=== PATIENT | female | born 1950 | race Caucasian/White ===

== ENCOUNTER 2016-12-01 09:15 | Inpatient (IN) | payer MEDICARE, OTHER ==
[~2016-12-01 09:15] MED LIST: Lactated Ringers 1,000 ML IV SCH; Lidocaine 1%/Sod Bicarbonate in NS 8.4% 1 ML Syringe IV PRN; Sodium Chloride 0.9% 10 ML Syringe FLUSH PRN
[2016-12-01] MEDS ORDERED: Midazolam 1 MG/ML 2 ML SDV ONE (09:56)
[2016-12-01] MEDS ORDERED: Propofol 200 MG/20 ML SDV ONE ×2 (09:56→14:57)
[2016-12-01] MEDS ORDERED: Lidocaine 1% 4 ML ONE (10:04)
[2016-12-01] MEDS ORDERED: fentaNYL 100 MCG/2 ML SDV ONE (10:06)
[2016-12-01] MEDS ORDERED: Morphine PF 10 MG/10 ML SDV ONE (10:07)
--- NOTE | 2016-12-01 12:45 | PCM.PREANE ---
[id number] - Anesthesia/Transfusion/Family Hx Anesthesia History: Prior Anesthesia Without Reaction Family History of Anesthesia Reaction: No Transfusion History: Prior Transfusion Without Reaction Intubation History: Unknown - Review of Systems General: Other (left eye slightly red due to allergies per patient ) Pulmonary: No Symptoms Cardiovascular: Dyspnea on Exertion, Edema Gastrointestinal: No symptoms Neurological: Numbness (lower extremities from diabetes ) Other: Reports: None - Physical Assessment NPO Status Date: 11/30/16 NPO Status Time: 21:30 O2 Sat by Pulse Oximetry: 95 Respiratory Rate: 16 Vital Signs: Last Vital Signs Temp 37.0 C 12/01/16 10:30 Pulse 59 L 12/01/16 10:30 Resp 16 12/01/16 10:30 BP 159/79 H 12/01/16 10:30 Pulse Ox 95 12/01/16 10:30 Height: 1.6 m Weight: 109.769 kg ASA Class: 3 Mental Status: Alert & Oriented x3 Airway Class: Mallampati = 2 Dentition: Reports: Normal Dentition Thyro-Mental Finger Breadths: 3 Mouth Opening Finger Breadths: 5 ROM/Head Extension: Full Lungs: Clear to auscultation, Normal respiratory effort Cardiovascular: Regular Rate, Regular Rhythm - Lab Values: Laboratory Last Values POC Glucose 108 mg/dL (80-115) 12/01/16 11:11 - Allergies Allergies/Adverse Reactions: Allergies Allergy/AdvReac Type Severity Reaction Status Date / Time clopidogrel bisulfate Allergy difficulty Verified 11/28/16 11:18 [From Plavix] breathing, facial swelling, throat swelling - Blood Blood Available: Yes - Anesthesia Plan Beta Cort[place]: Carvedilol Med Last Dose Date: 12/01/16 Med Last Dose Time: 07:00 - Acknowledgements Anesthesia Type Planned: Spinal Pt an Appropriate Candidate for the Planned Anesthesia: Yes Alternatives and Risks of Anesthesia Discussed w Pt/Guardian: Yes Pt/Guardian Understands and Agrees with Anesthesia Plan: Yes PreAnesthesia Questionnaire HEENT History: Reports: Allergic Rhinitis, Impaired Vision, Other (See Below) Other HEENT History: wears glasses Cardiovascular History: Reports: High Cholesterol, Hypertension, [place], Stents Other Cardiovascular History: heart stents Respiratory History: Reports: Bronchitis, Recurrent, Other (See Below) Other Respiratory History: cough Gastrointestinal History: Reports: GERD Genitourinary History: Reports: Other (See Below) Other Genitourinary History: chronic kidney disease [employer] History: Reports: None Musculoskeletal History: Reports: Arthritis, Other (See Below) Other Musculoskeletal History: R elbow pain and swelling, 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, L knee replacement Neurological History: Reports: None Psychiatric History: Reports: None Endocrine/Metabolic History: Reports: Diabetes, Type II Hematologic History: Reports: None Immunologic History: Reports: None Oncologic (Cancer) History: Reports: None Dermatologic History: Reports: None - Past Surgical History Head Surgeries/Procedures: Reports: None Female Surgical History: Reports: Section Musculoskeletal Surgical History: Reports: Knee Replacement - SUBSTANCE USE Smoking Status *Q: Never Smoker Second Hand Smoke Exposure: No Recreational Drug Use History: No - HOME MEDS Home Medications: Home Meds Aspirin [Low Dose Aspirin EC] 81 mg PO DAILY 02/16/15 [History] Carvedilol [Coreg] 12.5 mg PO BID 02/16/15 [History] Losartan/Hydrochlorothiazide [Losartan-HCTZ 100-25 MG] 100 mg PO DAILY 02/16/15 [History] Magnesium 250 mg PO DAILY 02/16/15 [History] Multivitamin [One Daily] 1 tab PO DAILY 02/16/15 [History] atorvaSTATin [Lipitor] 80 mg PO DAILY 02/16/15 [History] sitaGLIPtin Phos/Metformin HCl [Janumet 50-500 MG] 1 tab PO QPM 02/16/15 [ History] sitaGLIPtin Phos/Metformin HCl [Janumet 50-500 MG] 0.5 tab PO QAM 02/19/15 [ History] Ascorbic Acid [Vitamin C] 500 mg PO DAILY tablet 02/21/15 [Rx] Amoxicillin 500 mg PO ASDIRECTED PRN 11/28/16 [History] Cholecalciferol (Vitamin D3) [Vitamin D3] 1,000 mg PO DAILY 11/28/16 [History] - CURRENT (IN HOUSE) MEDS Current Meds: Current Medications Lactated Ringer's (Ringers, Lactated) 1,000 mls @ 125 mls/hr IV ASDIRECTED GUY Last Admin: 12/01/16 11:00 Dose: 125 mls/hr Lidocaine/Sodium Bicarbonate (Buffered Lidocaine 1% In Ns 8.4%) 0.25 ml IV ONETIME PRN PRN Reason: Prior to IV Start Last Admin: 12/01/16 10:59 Dose: 0.25 ml Sodium Chloride (Saline Flush) 10 ml FLUSH ASDIRECTED PRN PRN Reason: Keep Vein Open Discontinued Medications Bupivacaine HCl (Marcaine 0.5%) Confirm Administered Dose 30 ml .ROUTE .STK-MED ONE Stop: 12/01/16 12:11 Cefazolin Sodium (Ancef) Confirm Administered Dose 2 gm .ROUTE .STK-MED ONE Stop: 12/01/16 12:11 Morphine Sulfate 8 mg/Epinephrine HCl 0.3 mg/Cefuroxime Sodium 750 mg/Ketorolac Tromethamine 30 mg/Sodium Chloride 27.9 ml 0 mg .XX ONETIME ONE Stop: 12/01/16 12:31 Fentanyl (Sublimaze) Confirm Administered Dose 100 mcg .ROUTE .STK-MED ONE Stop: 12/01/16 10:07 Lidocaine HCl (Xylocaine-Mpf 1%) Confirm Administered Dose 4 mls @ as directed .ROUTE .STK-MED ONE Stop: 12/01/16 10:05 Iodine (Iodine 2% Mild Tincture) Confirm Administered Dose 30 ml .ROUTE .STK- MED ONE Stop: 12/01/16 12:11 Midazolam HCl (Versed 1 Mg/Ml) Confirm Administered Dose 2 mg .ROUTE .STK-MED ONE Stop: 12/01/16 09:57 Morphine Sulfate (Duramorph Pf) Confirm Administered Dose 10 mg .ROUTE .STK-MED ONE Stop: 12/01/16 10:08 Propofol (Diprivan 20 Ml) Confirm Administered Dose 600 mg .ROUTE .STK-MED ONE Stop: 12/01/16 09:57 Tranexamic Acid (Cyklokapron) Confirm Administered Dose 1,000 mg .ROUTE .STK- MED ONE Stop: 12/01/16 12:11
[2016-12-01] MEDS ORDERED: diphenhydrAMINE 50 MG/ML SDV IVPUSH PRN (12:53)
[2016-12-01] MEDS ORDERED: Ondansetron 4 MG/2 ML SDV IVPUSH PRN ×2 (12:53→15:37)
[2016-12-01] MEDS ORDERED: Bupivacaine 0.25% 30 ML SDV ONE (13:06)
[2016-12-01] MEDS ORDERED: ceFAZolin 1 GM Vial ONE (13:44)
[2016-12-01] MEDS ORDERED: Ondansetron 4 MG/2 ML SDV ONE (14:02)
[2016-12-01] MEDS: ceFAZolin 1 GM Vial ONE ×2 (14:14→14:42)
[2016-12-01] MEDS: Iodine/Sodium Iodide 2% Tincture 30 ML Bottle ONE ×2 (14:14→14:39)
[2016-12-01] MEDS: Morphine 8 MG, EPINEPHrine 0.3 MG, Cefuroxime 750 MG, Ketorolac 30 MG, Sodium Chloride ... ONE ×10 (14:15→14:46)
[2016-12-01] MEDS: Bupivacaine 0.5% 30 ML SDV ONE ×2 (14:15→14:47)
[2016-12-01] MEDS ORDERED: Phenylephrine/Normal Saline 100 MCG/ML 10 ML Syringe ONE (14:55)
[2016-12-01] MEDS ORDERED: ePHEDrine/Normal Saline 25 MG/5 ML Syringe ONE (14:59)
--- NOTE | 2016-12-01 15:34 | PCM.POSTAN ---
POST ANESTHESIA ASSESSMENT - MENTAL STATUS Mental Status: alert, oriented - VITAL SIGNS Pulse Rate: 68 SaO2: 93 Resp Rate: 15 Blood Pressure: 121/71 Temperature: 98.4 C - RESPIRATORY Respiratory Status: respiratory rate WNL, airway patent, O2 saturation stable - CARDIOVASCULAR CV Status: pulse rate WNL, blood pressure stable - GASTROINTESTINAL GI Status: no symptoms - PAIN Pain Score: 0 - POST OP HYDRATION Hydration Status: adequate & stable
[2016-12-01] MEDS ORDERED: Morphine 2 MG/ML Syringe IVPUSH PRN (15:37)
[2016-12-01] MEDS ORDERED: Naloxone 0.4 MG/ML SDV IVPUSH PRN (15:37)
[2016-12-01] MEDS ORDERED: Sennosides 8.6 MG Tab PO PRN (15:37)
[2016-12-01] MEDS ORDERED: Bisacodyl 5 MG Tab PO PRN (15:37)
[2016-12-01] MEDS ORDERED: Magnesium Hydroxide 400 MG/5 ML Susp 30 ML Cup PO PRN (15:37)
--- NOTE | 2016-12-01 16:06 | CR ---
Right knee: AP and lateral views of the right knee were obtained. Comparison: No previous right knee study. Knee prosthesis is seen. Components are aligned. Underlying bony structures are intact. Small amount of soft tissue air is noted from the surgical procedure. Impression: 1. Satisfactory appearance of recently placed right knee prosthesis. Diagnostic code #2
[2016-12-01] MEDS: metFORMIN 500 MG Tab PO SCH ×2 (17:20→21:15)
[2016-12-01] MEDS: Carvedilol 12.5 MG Tab PO SCH ×2 (17:20→21:15)
[2016-12-01] MEDS ORDERED: Non-Formulary Medication 1 Each (Sitagliptin Phos/Metformin Hcl [Janumet 50-500 Mg] 1 TAB) PO SCH (18:00)
--- NOTE | 2016-12-01 18:21 | PCM.CONSN ---
- General Info Date of Service: 12/01/16 Admission Dx/Problem (Free Text): 66 year olfd female with right knee OA, is S/P right total knee arthroplasty. The patient underwent risk stratification by cardiology. This included an stress test which is negative. She has a PCI history with stent placement in 2005. PMH: CAD/ND; HTN; COPD; CKD; Hyperlipidemia. Hospitalist service will assist with medical needs. Functional Status: Reports: pain controlled, tolerating diet, urinating - Review of Systems General: Reports: No Symptoms HEENT: Reports: no symptoms Pulmonary: Reports: no symptoms Cardiovascular: Reports: No Symptoms Gastrointestinal: Reports: No symptoms Genitourinary: Reports: no symptoms Musculoskeletal: Reports: no symptoms Skin: Reports: no symptoms Neurological: Reports: No Symptoms Psychiatric: Reports: no symptoms - Patient Data Vitals - most recent: Last Vital Signs Temp 36.8 C 12/01/16 16:15 Pulse 63 12/01/16 17:56 Resp 16 12/01/16 17:56 BP 115/90 12/01/16 17:32 Pulse Ox 95 12/01/16 17:56 Weight - most recent: 109.769 kg Lab Results last 24 hrs: Laboratory Results - last 24 hr 12/01/16 Range/Units 11:11 POC Glucose 108 (80-115) mg/dL Med Orders - Current: Current Medications Aspirin (Ecotrin) 325 mg PO BID GUY Bisacodyl (Dulcolax) 5 mg PO DAILY PRN PRN Reason: Constipation Carvedilol (Coreg) 12.5 mg PO BIDMEALS [facility] Last Admin: 12/01/16 17:20 Dose: 12.5 mg Cholecalciferol (Vitamin D3) 1,000 units PO DAILY [facility] Cyclobenzaprine HCl (Flexeril) 10 mg PO TID PRN PRN Reason: Spasms Docusate Sodium (Colace) 100 mg PO BID [facility] Hydrochlorothiazide (Hydrochlorothiazide) 25 mg PO DAILY [facility] Lactated Ringer's (Ringers, Lactated) 1,000 mls @ 125 mls/hr IV ASDIRECTED [facility] Last Admin: 12/01/16 11:00 Dose: 125 mls/hr Cefazolin Sodium/Dextrose 2 gm (/ Premix) 50 mls @ 100 mls/hr IV Q8H [facility] Stop: 12/02/16 14:29 Lidocaine/Sodium Bicarbonate (Buffered Lidocaine 1% In Ns 8.4%) 0.25 ml IV ONETIME PRN PRN Reason: Prior to IV Start Last Admin: 12/01/16 10:59 Dose: 0.25 ml Losartan Potassium (Cozaar) 100 mg PO DAILY [facility] Magnesium Hydroxide (Milk Of Magnesia) 30 ml PO BID PRN PRN Reason: Constipation Magnesium Oxide (Magnesium Oxide) 400 mg PO DAILY [facility] Metformin HCl (Glucophage) 500 mg PO QPM [facility] Last Admin: 12/01/16 17:20 Dose: 500 mg Metformin HCl (Glucophage) 250 mg PO QAM [facility] Morphine Sulfate (Morphine) 2 mg IVPUSH Q2H PRN PRN Reason: Breakthrough Pain Multivitamins (Thera) 1 each PO WITHBREAKFAST [facility] Ondansetron HCl (Zofran) 4 mg IVPUSH Q6H PRN PRN Reason: Nausea/Vomiting Oxycodone/Acetaminophen (Percocet 325-5 Mg) 1 - 2 tab PO Q4H PRN PRN Reason: Pain Rosuvastatin Calcium (Crestor) 20 mg PO DAILY [facility] Senna (Senna) 8.6 mg PO BID PRN PRN Reason: Constipation Sitagliptin Phosphate (Januvia) 50 mg PO QPM [facility] Last Admin: 12/01/16 17:21 Dose: 50 mg Sitagliptin Phosphate (Januvia) 25 mg PO QAM [facility] Sodium Chloride (Saline Flush) 10 ml FLUSH ASDIRECTED PRN PRN Reason: Keep Vein Open Discontinued Medications Bupivacaine HCl (Marcaine 0.5%) Confirm Administered Dose 30 ml .ROUTE .STK-MED ONE Stop: 12/01/16 12:11 Last Admin: 12/01/16 14:47 Dose: 30 ml Bupivacaine HCl (Marcaine 0.25%) Confirm Administered Dose 30 ml .ROUTE .STK- MED ONE Stop: 12/01/16 13:07 Cefazolin Sodium (Ancef) Confirm Administered Dose 2 gm .ROUTE .STK-MED ONE Stop: 12/01/16 12:11 Last Admin: 12/01/16 14:42 Dose: 2 gm Cefazolin Sodium (Ancef) Confirm Administered Dose 2 gm .ROUTE .STK-MED ONE Stop: 12/01/16 13:45 Morphine Sulfate 8 mg/Epinephrine HCl 0.3 mg/Cefuroxime Sodium 750 mg/Ketorolac Tromethamine 30 mg/Sodium Chloride 27.9 ml 0 mg .XX ONETIME ONE Stop: 12/01/16 12:31 Last Admin: 12/01/16 14:46 Dose: 788.3 mg Diphenhydramine HCl (Benadryl) 25 mg IVPUSH Q6H PRN PRN Reason: pruritis Stop: 12/01/16 18:00 Ephedrine Sulfate (Ephedrine In Ns) Confirm Administered Dose 25 mg .ROUTE .STK- MED ONE Stop: 12/01/16 15:00 Fentanyl (Sublimaze) Confirm Administered Dose 100 mcg .ROUTE .STK-MED ONE Stop: 12/01/16 10:07 Lidocaine HCl (Xylocaine-Mpf 1%) Confirm Administered Dose 4 mls @ as directed .ROUTE .STK-MED ONE Stop: 12/01/16 10:05 Iodine (Iodine 2% Mild Tincture) Confirm Administered Dose 30 ml .ROUTE .STK- MED ONE Stop: 12/01/16 12:11 Last Admin: 12/01/16 14:39 Dose: 18 ml Midazolam HCl (Versed 1 Mg/Ml) Confirm Administered Dose 2 mg .ROUTE .STK-MED ONE Stop: 12/01/16 09:57 Morphine Sulfate (Duramorph Pf) Confirm Administered Dose 10 mg .ROUTE .STK-MED ONE Stop: 12/01/16 10:08 Naloxone HCl (Narcan) 0.1 mg IVPUSH Q5M PRN PRN Reason: Oversedation Stop: 12/01/16 15:53 Ondansetron HCl (Zofran) 4 mg IVPUSH ONETIME PRN PRN Reason: Nausea/Vomiting Stop: 12/01/16 18:00 Ondansetron HCl (Zofran) Confirm Administered Dose 4 mg .ROUTE .STK-MED ONE Stop: 12/01/16 14:03 Phenylephrine HCl (Phenylephrine In Ns 100 Mcg/Ml) Confirm Administered Dose 1 mg .ROUTE .STK-MED ONE Stop: 12/01/16 14:56 Propofol (Diprivan 20 Ml) Confirm Administered Dose 600 mg .ROUTE .STK-MED ONE Stop: 12/01/16 09:57 Propofol (Diprivan 20 Ml) Confirm Administered Dose 200 mg .ROUTE .STK-MED ONE Stop: 12/01/16 14:58 Tranexamic Acid (Cyklokapron) Confirm Administered Dose 1,000 mg .ROUTE .[employer] ONE Stop: 12/01/16 12:11 Last Admin: 12/01/16 14:56 Dose: 1,000 mg - Exam Quality Assessment: urine catheter, DVT prophylaxis General: alert, oriented, cooperative, no acute distress HEENT: Pupils equal, Pupils reactive, EOMI Neck: supple, trachea midline, no JVD Lungs: Normal respiratory effort Cardiovascular: Regular Rate, Regular Rhythm Abdomen: bowel sounds present, soft, no tenderness, no distension (Female) Exam: Deferred Back Exam: Normal Inspection Extremities: normal pulses Skin: warm Neurological: no new focal deficit, normal speech Psy/Mental Status: alert, normal affect, normal mood Consult PN Assessment/Plan POD#: 0 Procedures: Procedures ASSAY OF FERRITIN (11/17/16) ASSAY OF PREALBUMIN (11/17/16) ASSAY THYROID STIM HORMONE (07/21/16) C-REACTIVE PROTEIN (01/10/16) CARDIOVASCULAR STRESS TEST (08/31/15) CHEST X-RAY 2VW FRONTAL&LATL (11/17/16) COMPLETE CBC W/AUTO DIFF WBC (11/17/16) COMPREHEN METABOLIC PANEL (11/17/16) GAIT TRAINING THERAPY (02/19/15) GLUCOSE BLOOD TEST (02/19/15) GLYCOSYLATED HEMOGLOBIN TEST (11/17/16) HT MUSCLE IMAGE SPECT MULT (08/31/15) LIPID PANEL (10/13/16) MEASURE BLOOD OXYGEN LEVEL (02/19/15) MICROALBUMIN SEMIQUANT (07/21/16) MR-STAPH DNA AMP PROBE (11/17/16) OFFICE/OUTPATIENT VISIT EST (11/17/16) OFFICE/OUTPATIENT VISIT EST (07/21/16) OT EVALUATION (02/19/15) PPSV23 VACC 2 YRS+ SUBQ/IM (02/19/15) PROTHROMBIN TIME (11/17/16) PT EVALUATION (02/19/15) ROUTINE VENIPUNCTURE (11/17/16) SELF CARE MNGMENT TRAINING (02/19/15) THERAPEUTIC ACTIVITIES (02/19/15) THERAPEUTIC EXERCISES (02/19/15) THROMBOPLASTIN TIME PARTIAL (11/17/16) VITAMIN D 25 HYDROXY (11/17/16) X-RAY EXAM OF ELBOW (10/17/16) X-RAY EXAM OF KNEE 1 OR 2 (02/19/15) (1) CAD (coronary artery disease) SNOMED Code(s): 21832927 Code(s): I25.10 - ATHSCL HEART DISEASE OF [place] CORONARY ARTERY W/O ANG PCTRS Current Visit: No (2) Diabetes SNOMED Code(s): 22958370 Code(s): E11.9 - TYPE 2 DIABETES MELLITUS WITHOUT COMPLICATIONS Current Visit: No (3) Hyperlipemia SNOMED Code(s): 23052526 Code(s): E78.5 - HYPERLIPIDEMIA, UNSPECIFIED Current Visit: No (4) Hypertension SNOMED Code(s): 06592977 Code(s): I10 - ESSENTIAL (PRIMARY) HYPERTENSION Current Visit: No Problem List Initiated/Reviewed/Updated: Yes Plan: Impression: POD 0, S/P Right total knee arthroplasty Right knee OA Chronic CAD/ND HTN Hyperlipidemia COPD CKD Plan: Daily labs Home meds Pain meds DVT prophylaxis GI prophylaxis SW/PT/OT
[2016-12-01] MEDS ORDERED: Metoclopramide 10 MG/2 ML SDV IVPUSH PRN (20:09)
[2016-12-01] MEDS: Docusate Sodium 100 MG Cap PO SCH (20:51)
[2016-12-01] MEDS: ceFAZolin 2 GM in Premix Bag 1 BAG IV SCH (21:02)
[2016-12-02] MEDS: Acetaminophen/oxyCODONE 325-5 MG Tab PO PRN ×3 (00:07→14:54)
[2016-12-02] MEDS ORDERED: Sodium Chloride 0.9% 1,000 ML IV SCH (02:15)
[2016-12-02] MEDS ORDERED: Furosemide 20 MG/2 ML VIAL IVPUSH ONE (06:03)
[2016-12-02] MEDS ORDERED: Sodium Chloride 0.9% 500 ML IV ONE (06:04)
[2016-12-02] MEDS ORDERED: Tamsulosin 0.4 MG Cap.ER PO ONE (06:09)
--- NOTE | 2016-12-02 06:16 | PCM.CONSN ---
- General Info Date of Service: 12/02/16 Admission Dx/Problem (Free Text): POD #[address] Abdi Pain under fair to good control; up with PT yesterday and this morning. Slept "OK" last night. No nausea. Low urine output overnight; rec'd one 250cc bolus last evening. No CP, SOB, palpitations, coughing. Hgb 10.2 this am VSS. Functional Status: Reports: pain controlled, tolerating diet, ambulating, urinating (low urine output overnight). Denies: new symptoms - Review of Systems General: Denies: Fever HEENT: Reports: no symptoms Pulmonary: Reports: no symptoms. Denies: shortness of breath, cough Cardiovascular: Reports: No Symptoms. Denies: Chest Pain, Palpitations, Dyspnea on Exertion, Edema, Lightheadedness Gastrointestinal: Reports: No symptoms Genitourinary: Reports: other (low urine output overnight; yanez to be dc'd this am) Musculoskeletal: Reports: leg pain Neurological: Reports: No Symptoms Psychiatric: Reports: no symptoms - Patient Data Vitals - most recent: Last Vital Signs Temp 97.5 F 12/02/16 03:09 Pulse 58 L 12/02/16 03:09 Resp 18 12/02/16 03:09 BP 128/83 12/02/16 03:09 Pulse Ox 94 L 12/02/16 03:09 Weight - most recent: 251 lb 9.6 oz I&O - last 24 hours: Intake & Output 12/01/16 12/01/16 12/02/16 14:59 22:59 06:59 Intake Total 470 1383 Output Total 500 250 Balance -30 1133 Lab Results last 24 hrs: Laboratory Results - last 24 hr 12/01/16 Range/Units 11:11 POC Glucose 108 (80-115) mg/dL Med Orders - Current: Current Medications Aspirin (Ecotrin) 325 mg PO BID GUY Bisacodyl (Dulcolax) 5 mg PO DAILY PRN PRN Reason: Constipation Carvedilol (Coreg) 12.5 mg PO BIDMEALS [facility] Last Admin: 12/01/16 21:15 Dose: Not Given Cholecalciferol (Vitamin D3) 1,000 units PO DAILY [facility] Cyclobenzaprine HCl (Flexeril) 10 mg PO TID PRN PRN Reason: Spasms Docusate Sodium (Colace) 100 mg PO BID [facility] Last Admin: 12/01/16 20:51 Dose: 100 mg Enoxaparin Sodium (Lovenox) 40 mg SUBCUT DAILY [facility] Famotidine (Pepcid) 20 mg PO BID [facility] Hydrochlorothiazide (Hydrochlorothiazide) 25 mg PO DAILY [facility] Cefazolin Sodium/Dextrose 2 gm (/ Premix) 50 mls @ 100 mls/hr IV Q8H GUY Stop: 12/02/16 14:29 Last Admin: 12/01/16 21:02 Dose: 100 mls/hr Sodium Chloride (Normal Saline) 1,000 mls @ 150 mls/hr IV ASDIRECTED [facility] Last Admin: 12/02/16 02:11 Dose: 150 mls/hr Sodium Chloride (Normal Saline) 500 mls @ 999 mls/hr IV .BOLUS ONE Stop: 12/02/16 06:34 Lidocaine/Sodium Bicarbonate (Buffered Lidocaine 1% In Ns 8.4%) 0.25 ml IV ONETIME PRN PRN Reason: Prior to IV Start Last Admin: 12/01/16 10:59 Dose: 0.25 ml Losartan Potassium (Cozaar) 100 mg PO DAILY [facility] Magnesium Hydroxide (Milk Of Magnesia) 30 ml PO BID PRN PRN Reason: Constipation Magnesium Oxide (Magnesium Oxide) 400 mg PO DAILY [facility] Metformin HCl (Glucophage) 500 mg PO QPM [facility] Last Admin: 12/01/16 21:15 Dose: Not Given Metformin HCl (Glucophage) 250 mg PO QAM [facility] Metoclopramide HCl (Reglan) 5 mg IVPUSH Q6H PRN PRN Reason: Nausea Last Admin: 12/01/16 20:51 Dose: 5 mg Morphine Sulfate (Morphine) 2 mg IVPUSH Q2H PRN PRN Reason: Breakthrough Pain Multivitamins (Thera) 1 each PO WITHBREAKFAST [facility] Ondansetron HCl (Zofran) 4 mg IVPUSH Q6H PRN PRN Reason: Nausea/Vomiting Last Admin: 12/01/16 18:50 Dose: 4 mg Oxycodone/Acetaminophen (Percocet 325-5 Mg) 1 - 2 tab PO Q4H PRN PRN Reason: Pain Last Admin: 12/02/16 04:03 Dose: 2 tab Rosuvastatin Calcium (Crestor) 20 mg PO DAILY [facility] Senna (Senna) 8.6 mg PO BID PRN PRN Reason: Constipation Sitagliptin Phosphate (Januvia) 50 mg PO QPM [facility] Last Admin: 12/01/16 21:15 Dose: Not Given Sitagliptin Phosphate (Januvia) 25 mg PO QAM [facility] Sodium Chloride (Saline Flush) 10 ml FLUSH ASDIRECTED PRN PRN Reason: Keep Vein Open Tamsulosin HCl (Flomax) 0.4 mg PO ONETIME ONE Stop: 12/02/16 06:10 Discontinued Medications Bupivacaine HCl (Marcaine 0.5%) Confirm Administered Dose 30 ml .ROUTE .STK-MED ONE Stop: 12/01/16 12:11 Last Admin: 12/01/16 14:47 Dose: 30 ml Bupivacaine HCl (Marcaine 0.25%) Confirm Administered Dose 30 ml .ROUTE .STK- MED ONE Stop: 12/01/16 13:07 Cefazolin Sodium (Ancef) Confirm Administered Dose 2 gm .ROUTE .STK-MED ONE Stop: 12/01/16 12:11 Last Admin: 12/01/16 14:42 Dose: 2 gm Cefazolin Sodium (Ancef) Confirm Administered Dose 2 gm .ROUTE .STK-MED ONE Stop: 12/01/16 13:45 Morphine Sulfate 8 mg/Epinephrine HCl 0.3 mg/Cefuroxime Sodium 750 mg/Ketorolac Tromethamine 30 mg/Sodium Chloride 27.9 ml 0 mg .XX ONETIME ONE Stop: 12/01/16 12:31 Last Admin: 12/01/16 14:46 Dose: 788.3 mg Diphenhydramine HCl (Benadryl) 25 mg IVPUSH Q6H PRN PRN Reason: pruritis Stop: 12/01/16 18:00 Ephedrine Sulfate (Ephedrine In Ns) Confirm Administered Dose 25 mg .ROUTE .STK- MED ONE Stop: 12/01/16 15:00 Fentanyl (Sublimaze) Confirm Administered Dose 100 mcg .ROUTE .STK-MED ONE Stop: 12/01/16 10:07 Furosemide (Lasix) 10 mg IVPUSH NOW ONE Stop: 12/02/16 06:04 Lactated Ringer's (Ringers, Lactated) 1,000 mls @ 125 mls/hr IV ASDIRECTED [facility] Last Admin: 12/01/16 11:00 Dose: 125 mls/hr Lidocaine HCl (Xylocaine-Mpf 1%) Confirm Administered Dose 4 mls @ as directed .ROUTE .STK-MED ONE Stop: 12/01/16 10:05 Iodine (Iodine 2% Mild Tincture) Confirm Administered Dose 30 ml .ROUTE .STK- MED ONE Stop: 12/01/16 12:11 Last Admin: 12/01/16 14:39 Dose: 18 ml Midazolam HCl (Versed 1 Mg/Ml) Confirm Administered Dose 2 mg .ROUTE .STK-MED ONE Stop: 12/01/16 09:57 Morphine Sulfate (Duramorph Pf) Confirm Administered Dose 10 mg .ROUTE .STK-MED ONE Stop: 12/01/16 10:08 Naloxone HCl (Narcan) 0.1 mg IVPUSH Q5M PRN PRN Reason: Oversedation Stop: 12/01/16 15:53 Ondansetron HCl (Zofran) 4 mg IVPUSH ONETIME PRN PRN Reason: Nausea/Vomiting Stop: 12/01/16 18:00 Ondansetron HCl (Zofran) Confirm Administered Dose 4 mg .ROUTE .STK-MED ONE Stop: 12/01/16 14:03 Phenylephrine HCl (Phenylephrine In Ns 100 Mcg/Ml) Confirm Administered Dose 1 mg .ROUTE .STK-MED ONE Stop: 12/01/16 14:56 Propofol (Diprivan 20 Ml) Confirm Administered Dose 600 mg .ROUTE .STK-MED ONE Stop: 12/01/16 09:57 Propofol (Diprivan 20 Ml) Confirm Administered Dose 200 mg .ROUTE .STK-MED ONE Stop: 12/01/16 14:58 Tranexamic Acid (Cyklokapron) Confirm Administered Dose 1,000 mg .ROUTE .STK- MED ONE Stop: 12/01/16 12:11 Last Admin: 12/01/16 14:56 Dose: 1,000 mg - Exam Quality Assessment: DVT prophylaxis General: alert, oriented, cooperative, no acute distress HEENT: Pupils equal, Pupils reactive, EOMI, Mucous membr. moist/pink Neck: supple Lungs: Clear to auscultation, Normal respiratory effort, Decreased breath sounds (bases bilat) Cardiovascular: Regular Rate, Regular Rhythm Abdomen: bowel sounds present, soft, no tenderness, no distension (Female) Exam: Deferred Extremities: no edema, no calf tenderness, other (scd's, teds and ice present) Peripheral Pulses: 1+: Dorsalis Pedis (L), Dorsalis Pedis (R) Skin: warm, dry Neurological: no new focal deficit Psy/Mental Status: alert, normal affect, normal mood Consult PN Assessment/Plan POD#: 1 Procedures: Procedures ASSAY OF FERRITIN (11/17/16) ASSAY OF PREALBUMIN (11/17/16) ASSAY THYROID STIM HORMONE (07/21/16) C-REACTIVE PROTEIN (01/10/16) CARDIOVASCULAR STRESS TEST (08/31/15) CHEST X-RAY 2VW FRONTAL&LATL (11/17/16) COMPLETE CBC W/AUTO DIFF WBC (11/17/16) COMPREHEN METABOLIC PANEL (11/17/16) GAIT TRAINING THERAPY (02/19/15) GLUCOSE BLOOD TEST (02/19/15) GLYCOSYLATED HEMOGLOBIN TEST (11/17/16) HT MUSCLE IMAGE SPECT MULT (08/31/15) LIPID PANEL (10/13/16) MEASURE BLOOD OXYGEN LEVEL (02/19/15) MICROALBUMIN SEMIQUANT (07/21/16) MR-STAPH DNA AMP PROBE (11/17/16) OFFICE/OUTPATIENT VISIT EST (11/17/16) OFFICE/OUTPATIENT VISIT EST (07/21/16) OT EVALUATION (02/19/15) PPSV23 VACC 2 YRS+ SUBQ/IM (02/19/15) PROTHROMBIN TIME (11/17/16) PT EVALUATION (02/19/15) ROUTINE VENIPUNCTURE (11/17/16) SELF CARE MNGMENT TRAINING (02/19/15) THERAPEUTIC ACTIVITIES (02/19/15) THERAPEUTIC EXERCISES (02/19/15) THROMBOPLASTIN TIME PARTIAL (11/17/16) VITAMIN D 25 HYDROXY (11/17/16) X-RAY EXAM OF ELBOW (10/17/16) X-RAY EXAM OF KNEE 1 OR 2 (02/19/15) (1) S/P total knee arthroplasty SNOMED Code(s): 9722570459237, 026133302, 7745551498201 Code(s): Z96.659 - PRESENCE OF UNSPECIFIED ARTIFICIAL KNEE JOINT Priority: High Current Visit: Yes (2) Osteoarthritis SNOMED Code(s): 438239652 Code(s): M19.90 - UNSPECIFIED OSTEOARTHRITIS, UNSPECIFIED SITE Priority: High Current Visit: Yes Qualifiers: Osteoarthritis location: knee Osteoarthritis type: primary (3) CAD (coronary artery disease) SNOMED Code(s): 86429519 Code(s): I25.10 - ATHSCL HEART DISEASE OF [place] CORONARY ARTERY W/O ANG PCTRS Priority: Medium Current Visit: No Qualifiers: Coronary Disease-Associated Artery/Lesion type: unspecified vessel or lesion type Tribe vs. transplanted heart: [place] heart Associated angina: without angina Qualified Code(s): I25.10 - Atherosclerotic heart disease of [place] coronary artery without angina pectoris (4) Diabetes SNOMED Code(s): 98091381 Code(s): E11.9 - TYPE 2 DIABETES MELLITUS WITHOUT COMPLICATIONS Priority: Medium Current Visit: Yes Qualifiers: Diabetes mellitus type: type 2 Diabetes mellitus complication status: without complication (5) Hyperlipemia SNOMED Code(s): 61217517 Code(s): E78.5 - HYPERLIPIDEMIA, UNSPECIFIED Priority: Medium Current Visit: No Qualifiers: Hyperlipidemia type: unspecified Qualified Code(s): E78.5 - Hyperlipidemia , unspecified (6) Hypertension SNOMED Code(s): 79401391 Code(s): I10 - ESSENTIAL (PRIMARY) HYPERTENSION Priority: Medium Current Visit: No Qualifiers: Hypertension type: essential hypertension Qualified Code(s): I10 - Essential (primary) hypertension Problem List Initiated/Reviewed/Updated: Yes My Orders last 24 hours: My Active Orders 12/02/16 06:04 Sodium Chloride 0.9% [Normal Saline] 500 ml IV .BOLUS 12/02/16 06:09 Tamsulosin [Flomax] 0.4 mg PO ONETIME ONE 12/02/16 09:00 Enoxaparin [Lovenox] 40 mg SUBCUT DAILY Famotidine [Pepcid] 20 mg PO BID 12/02/16 Breakfast Heart Healthy Diet [DIET] 12/04/16 07:00 CBC W/O DIFF,HEMOGRAM [HEME] MOTH@69912/08/16 07:00 CBC W/O DIFF,HEMOGRAM [HEME] MOTH@69912/11/16 07:00 CBC W/O DIFF,HEMOGRAM [HEME] MOTH@69912/15/16 07:00 CBC W/O DIFF,HEMOGRAM [HEME] MOTH@0700 12/18/16 07:00 CBC W/O DIFF,HEMOGRAM [HEME] MOTH@0700 12/22/16 07:00 CBC W/O DIFF,HEMOGRAM [HEME] MOTH@0700 Plan: S/P TKA with Dr. Abdi: POD #1 -Pain management and DVT prophylax per Ortho team -PT/OT -IS/RT -Hgb 10.2 this am, other labs stable -VSS -Low urine output overnight. Fluid bolus given x [address] [place] with minimal improvement. -Fluid bolus, lasix, flomax; close monitoring--voiding well this moring thus far Chronic: CAD- cont home meds; cardiac risk stratification per Cardiology, Dr. Patel HTN- cont home meds; stable HLD- cont home meds DM- sugars stable and within good range 100-110 throughout stay; cont home meds Other: GI prophylax CM/SW for assist with DC planning- patient plans for dc home with family. Full Code status
[2016-12-02] MEDS: Carvedilol 12.5 MG Tab PO SCH ×2 (06:42→17:39)
[2016-12-02] MEDS: ceFAZolin 2 GM in Premix Bag 1 BAG IV SCH ×2 (06:49→14:55)
[2016-12-02] MEDS: Cyclobenzaprine 10 MG Tab PO PRN ×2 (06:49→17:38)
[2016-12-02] MEDS ORDERED: Multivitamins,Therapeutic Tab PO SCH (07:00)
[2016-12-02] MEDS ORDERED: [UNRECOGNIZED DRUG - OTHER] PO SCH (08:00)
[2016-12-02] MEDS ORDERED: METFORMIN HCL PO SCH (08:00)
[2016-12-02] MEDS ORDERED: metFORMIN 500 MG Tab PO SCH (08:00)
[2016-12-02] MEDS ORDERED: SITAGLIPTIN PO SCH (08:00)
[2016-12-02] MEDS ORDERED: Aspirin 325 MG Tab.EC PO SCH (09:00)
[2016-12-02] MEDS ORDERED: Hydrochlorothiazide 25 MG Tab PO SCH (09:00)
[2016-12-02] MEDS ORDERED: LOSARTAN PO SCH (09:00)
[2016-12-02] MEDS ORDERED: Magnesium Oxide 400 MG Tab PO SCH (09:00)
[2016-12-02] MEDS ORDERED: Losartan 100 MG Tab PO SCH (09:00)
[2016-12-02] MEDS ORDERED: [UNRECOGNIZED DRUG - OTHER] PO SCH (09:00)
[2016-12-02] MEDS ORDERED: HYDROCHLOROTHIAZIDE PO SCH (09:00)
[2016-12-02] MEDS ORDERED: Cholecalciferol (Vitamin D3) 1,000 Unit Tab PO SCH (09:00)
[2016-12-02] MEDS ORDERED: Enoxaparin 40 MG/0.4 ML Syringe SUBCUT SCH (09:00)
[2016-12-02] MEDS ORDERED: Famotidine 20 MG Tab PO SCH (09:00)
[2016-12-02] MEDS ORDERED: Rosuvastatin 10 MG Tab PO SCH (09:00)
[2016-12-02] MEDS: Docusate Sodium 100 MG Cap PO SCH (10:17)
--- NOTE | 2016-12-02 16:33 | PCM.SURGPN ---
- General Info Date of Service: 12/02/16 POD#: 1 Functional Status: Reports: pain controlled, tolerating diet, ambulating, urinating. Denies: new symptoms - Review of Systems Musculoskeletal: Reports: other (The pt feels prepared for discharge to home.) - Patient Data Vitals - most recent: Last Vital Signs Temp 98.1 F 12/02/16 16:11 Pulse 66 12/02/16 16:11 Resp 14 12/02/16 16:11 BP 102/87 12/02/16 16:11 Pulse Ox 91 L 12/02/16 16:11 Weight - most recent: 251 lb 9.6 oz I&O - last 24 hours: Intake & Output 12/02/16 12/02/16 12/02/16 06:59 14:59 22:59 Intake Total 3078 240 9591 Output Total 275 50 100 Balance 2293 706 [id number] Lab Results last 24 hrs: Laboratory Results - last 24 hr 12/02/16 12/02/16 Range/Units 05:05 05:05 WBC 12.11 H (3.98-10.04) K/mm3 RBC 3.45 L (3.98-5.22) M/mm3 Hgb 10.2 L (11.2-15.7) gm/L Hct 30.6 L (34.1-44.9) % MCV 88.7 (79.4-94.8) fl MCH 29.6 (25.6-32.2) pg MCHC 33.3 (32.2-35.5) g/dl RDW Std Deviation 42.9 (36.4-46.3) fL Plt Count 170 L (182-369) K/mm3 MPV 11.5 (9.4-12.3) fl Neut % (Auto) 82.1 H (34.0-71.1) % Lymph % (Auto) 10.8 L (19.3-51.7) % Robeson % (Auto) 6.6 (4.7-12.5) % Eos % (Auto) 0.2 L (0.7-5.8) Baso % (Auto) 0.1 (0.1-1.2) % Neut # (Auto) 9.94 H (1.56-6.13) K/mm3 Lymph # (Auto) 1.31 (1.18-3.74) K/mm3 Robeson # (Auto) 0.80 H (0.24-0.36) K/mm3 Eos # (Auto) 0.02 L (0.04-0.36) K/mm3 Baso # (Auto) 0.01 (0.01-0.08) K/mm3 Sodium 136 (136-145) mEq/L Potassium 3.8 (3.5-5.1) mEq/L Chloride 102 (98-107) mEq/L Carbon Dioxide 27 (21-32) mEq/L Anion Gap 10.8 (5-15) BUN 20 H (7-18) mg/dL Creatinine 0.9 (0.55-1.02) mg/dL Est Cr Clr Drug Dosing 50.18 mL/min Estimated GFR (MDRD) > 60 (>60) mL/min BUN/Creatinine Ratio 22.2 H (14-18) Glucose 152 H (80-115) mg/dL Calcium 8.1 L (8.5-10.1) mg/dL Total Bilirubin 0.5 (0.2-1.0) mg/dL AST 29 (15-37) U/L ALT 25 (14-59) U/L Alkaline Phosphatase 94 (46-116) U/L Total Protein 6.4 (6.4-8.2) g/dl Albumin 2.9 L (3.4-5.0) g/dl Globulin 3.5 gm/dL Albumin/Globulin Ratio 0.8 L (1-2) Med Orders - Current: Current Medications Aspirin (Ecotrin) 325 mg PO BID [facility] Last Admin: 12/02/16 10:17 Dose: 325 mg Bisacodyl (Dulcolax) 5 mg PO DAILY PRN PRN Reason: Constipation Carvedilol (Coreg) 12.5 mg PO BIDMEALS [facility] Last Admin: 12/02/16 06:42 Dose: 12.5 mg Cholecalciferol (Vitamin D3) 1,000 units PO DAILY [facility] Last Admin: 12/02/16 10:17 Dose: 1,000 units Cyclobenzaprine HCl (Flexeril) 10 mg PO TID PRN PRN Reason: Spasms Last Admin: 12/02/16 06:49 Dose: 10 mg Docusate Sodium (Colace) 100 mg PO BID [facility] Last Admin: 12/02/16 10:17 Dose: 100 mg Famotidine (Pepcid) 20 mg PO BID [facility] Last Admin: 12/02/16 10:17 Dose: 20 mg Hydrochlorothiazide (Hydrochlorothiazide) 25 mg PO DAILY [facility] Last Admin: 12/02/16 10:18 Dose: 25 mg Lidocaine/Sodium Bicarbonate (Buffered Lidocaine 1% In Ns 8.4%) 0.25 ml IV ONETIME PRN PRN Reason: Prior to IV Start Last Admin: 12/01/16 10:59 Dose: 0.25 ml Losartan Potassium (Cozaar) 100 mg PO DAILY [facility] Last Admin: 12/02/16 10:17 Dose: 100 mg Magnesium Hydroxide (Milk Of Magnesia) 30 ml PO BID PRN PRN Reason: Constipation Magnesium Oxide (Magnesium Oxide) 400 mg PO DAILY [facility] Last Admin: 12/02/16 10:17 Dose: 400 mg Metformin HCl (Glucophage) 500 mg PO QPM [facility] Last Admin: 12/01/16 21:15 Dose: Not Given Metformin HCl (Glucophage) 250 mg PO QAM [facility] Last Admin: 12/02/16 10:18 Dose: 250 mg Metoclopramide HCl (Reglan) 5 mg IVPUSH Q6H PRN PRN Reason: Nausea Last Admin: 12/01/16 20:51 Dose: 5 mg Morphine Sulfate (Morphine) 2 mg IVPUSH Q2H PRN PRN Reason: Breakthrough Pain Last Admin: 12/02/16 10:20 Dose: 2 mg Multivitamins (Thera) 1 each PO WITHBREAKFAST [facility] Last Admin: 12/02/16 06:42 Dose: 1 each Ondansetron HCl (Zofran) 4 mg IVPUSH Q6H PRN PRN Reason: Nausea/Vomiting Last Admin: 12/01/16 18:50 Dose: 4 mg Oxycodone/Acetaminophen (Percocet 325-5 Mg) 1 - 2 tab PO Q4H PRN PRN Reason: Pain Last Admin: 12/02/16 14:54 Dose: 2 tab Rosuvastatin Calcium (Crestor) 20 mg PO DAILY [facility] Last Admin: 12/02/16 10:19 Dose: 20 mg Senna (Senna) 8.6 mg PO BID PRN PRN Reason: Constipation Sitagliptin Phosphate (Januvia) 50 mg PO QPM [facility] Last Admin: 12/01/16 21:15 Dose: Not Given Sitagliptin Phosphate (Januvia) 25 mg PO QAM [facility] Last Admin: 12/02/16 10:19 Dose: 25 mg Sodium Chloride (Saline Flush) 10 ml FLUSH ASDIRECTED PRN PRN Reason: Keep Vein Open Discontinued Medications Bupivacaine HCl (Marcaine 0.5%) Confirm Administered Dose 30 ml .ROUTE .STK-MED ONE Stop: 12/01/16 12:11 Last Admin: 12/01/16 14:47 Dose: 30 ml Bupivacaine HCl (Marcaine 0.25%) Confirm Administered Dose 30 ml .ROUTE .STK- MED ONE Stop: 12/01/16 13:07 Cefazolin Sodium (Ancef) Confirm Administered Dose 2 gm .ROUTE .STK-MED ONE Stop: 12/01/16 12:11 Last Admin: 12/01/16 14:42 Dose: 2 gm Cefazolin Sodium (Ancef) Confirm Administered Dose 2 gm .ROUTE .STK-MED ONE Stop: 12/01/16 13:45 Morphine Sulfate 8 mg/Epinephrine HCl 0.3 mg/Cefuroxime Sodium 750 mg/Ketorolac Tromethamine 30 mg/Sodium Chloride 27.9 ml 0 mg .XX ONETIME ONE Stop: 12/01/16 12:31 Last Admin: 12/01/16 14:46 Dose: 788.3 mg Diphenhydramine HCl (Benadryl) 25 mg IVPUSH Q6H PRN PRN Reason: pruritis Stop: 12/01/16 18:00 Enoxaparin Sodium (Lovenox) 40 mg SUBCUT DAILY [facility] Ephedrine Sulfate (Ephedrine In Ns) Confirm Administered Dose 25 mg .ROUTE .STK- MED ONE Stop: 12/01/16 15:00 Fentanyl (Sublimaze) Confirm Administered Dose 100 mcg .ROUTE .STK-MED ONE Stop: 12/01/16 10:07 Furosemide (Lasix) 10 mg IVPUSH NOW ONE Stop: 12/02/16 06:04 Last Admin: 12/02/16 06:49 Dose: 10 mg Lactated Ringer's (Ringers, Lactated) 1,000 mls @ 125 mls/hr IV ASDIRECTED [facility] Last Admin: 12/01/16 11:00 Dose: 125 mls/hr Lidocaine HCl (Xylocaine-Mpf 1%) Confirm Administered Dose 4 mls @ as directed .ROUTE .STK-MED ONE Stop: 12/01/16 10:05 Cefazolin Sodium/Dextrose 2 gm (/ Premix) 50 mls @ 100 mls/hr IV Q8H [facility] Stop: 12/02/16 14:29 Last Admin: 12/02/16 14:55 Dose: 100 mls/hr Sodium Chloride (Normal Saline) 1,000 mls @ 150 mls/hr IV ASDIRECTED [facility] Last Admin: 12/02/16 02:11 Dose: 150 mls/hr Sodium Chloride (Normal Saline) 500 mls @ 999 mls/hr IV .BOLUS ONE Stop: 12/02/16 06:34 Last Admin: 12/02/16 06:41 Dose: 999 mls/hr Iodine (Iodine 2% Mild Tincture) Confirm Administered Dose 30 ml .ROUTE .STK- MED ONE Stop: 12/01/16 12:11 Last Admin: 12/01/16 14:39 Dose: 18 ml Midazolam HCl (Versed 1 Mg/Ml) Confirm Administered Dose 2 mg .ROUTE .STK-MED ONE Stop: 12/01/16 09:57 Morphine Sulfate (Duramorph Pf) Confirm Administered Dose 10 mg .ROUTE .STK-MED ONE Stop: 12/01/16 10:08 Naloxone HCl (Narcan) 0.1 mg IVPUSH Q5M PRN PRN Reason: Oversedation Stop: 12/01/16 15:53 Ondansetron HCl (Zofran) 4 mg IVPUSH ONETIME PRN PRN Reason: Nausea/Vomiting Stop: 12/01/16 18:00 Ondansetron HCl (Zofran) Confirm Administered Dose 4 mg .ROUTE .STK-MED ONE Stop: 12/01/16 14:03 Phenylephrine HCl (Phenylephrine In Ns 100 Mcg/Ml) Confirm Administered Dose 1 mg .ROUTE .STK-MED ONE Stop: 12/01/16 14:56 Propofol (Diprivan 20 Ml) Confirm Administered Dose 600 mg .ROUTE .STK-MED ONE Stop: 12/01/16 09:57 Propofol (Diprivan 20 Ml) Confirm Administered Dose 200 mg .ROUTE .STK-MED ONE Stop: 12/01/16 14:58 Tamsulosin HCl (Flomax) 0.4 mg PO ONETIME ONE Stop: 12/02/16 06:10 Last Admin: 12/02/16 06:49 Dose: 0.4 mg Tranexamic Acid (Cyklokapron) Confirm Administered Dose 1,000 mg .ROUTE .STK- MED ONE Stop: 12/01/16 12:11 Last Admin: 12/01/16 14:56 Dose: 1,000 mg - Exam Wound/Incisions: dressing dry and intact General: alert, cooperative, no acute distress Lungs: Normal respiratory effort Extremities: normal pulses, no calf tenderness, other (NVS intact for BLE. Anastasia's negative.) Psy/Mental Status: alert, normal mood - Problem List Review Problem List Initiated/Reviewed/Updated: Yes - My Orders Last 24 Hours: Active Orders 24 hr Category Date Time Status Patient Status [ADT] Routine ADT 12/01/16 15:37 Active Ambulate [RC] PER UNIT ROUTINE Care 12/01/16 15:37 Active Antiembolic Devices [RC] , Care 12/01/16 15:41 Active May Shower [RC] ASDIRECTED Care 12/01/16 15:37 Active Notify Provider Consults [RC] ASDIRECTED Care 12/01/16 15:41 Active Oxygen Therapy [RC] PRN Care 12/01/16 15:37 Active RT Incentive Spirometry [RC] Q1HWA Care 12/01/16 15:38 Active Ready for Discharge [RC] PER UNIT ROUTINE Care 12/02/16 13:17 Active Up to Chair [RC] TIDMEALS Care 12/01/16 15:37 Active Urinary Catheter Assessment [RC] ASDIRECTED Care 12/02/16 07:51 Active VTE/DVT Education [RC] , Care 12/01/16 15:40 Active Consult to Physician [CONS] Routine Cons 12/01/16 15:37 Active OT Evaluation and Treatment [CONS] Routine Cons 12/01/16 15:37 Active PT Evaluation and Treatment [CONS] Routine Cons 12/01/16 15:41 Active Heart Healthy Diet [DIET] Diet 12/02/16 Breakfast Active CBC W/O DIFF,HEMOGRAM [HEME] MOTH@0700 Lab 12/04/16 07:00 Ordered CBC W/O DIFF,HEMOGRAM [HEME] MOTH@0700 Lab 12/08/16 07:00 Ordered CBC W/O DIFF,HEMOGRAM [HEME] MOTH@0700 Lab 12/11/16 07:00 Ordered CBC W/O DIFF,HEMOGRAM [HEME] MOTH@0700 Lab 12/15/16 07:00 Ordered CBC W/O DIFF,HEMOGRAM [HEME] MOTH@0700 Lab 12/18/16 07:00 Ordered CBC W/O DIFF,HEMOGRAM [HEME] MOTH@0700 Lab 12/22/16 07:00 Ordered Acetaminophen/oxyCODONE [Percocet 325-5 MG] Med 12/01/16 15:37 Active 1 - 2 tab PO Q4H PRN Aspirin [Ecotrin] Med 12/02/16 09:00 Active 325 mg PO BID Bisacodyl [Dulcolax] Med 12/01/16 15:37 Active 5 mg PO DAILY PRN Carvedilol [Coreg] Med 12/01/16 17:00 Active 12.5 mg PO BIDMEALS Cholecalciferol (Vitamin D3) [Vitamin D3] Med 12/02/16 09:00 Active 1,000 units PO DAILY Cyclobenzaprine [Flexeril] Med 12/01/16 15:37 Active 10 mg PO TID PRN Docusate Sodium [Colace] Med 12/01/16 21:00 Active 100 mg PO BID Famotidine [Pepcid] Med 12/02/16 09:00 Active 20 mg PO BID Hydrochlorothiazide Med 12/02/16 09:00 Active 25 mg PO DAILY Losartan [Cozaar] Med 12/02/16 09:00 Active 100 mg PO DAILY Magnesium Hydroxide [Milk of Magnesia] Med 12/01/16 15:37 Active 30 ml PO BID PRN Magnesium Oxide Med 12/02/16 09:00 Active 400 mg PO DAILY Metoclopramide [Reglan] Med 12/01/16 20:09 Active 5 mg IVPUSH Q6H PRN Morphine Med 12/01/16 15:37 Active 2 mg IVPUSH Q2H PRN Multivitamins,Therapeutic [Thera] Med 12/02/16 07:00 Active 1 each PO WITHBREAKFAST Ondansetron [Zofran] Med 12/01/16 15:37 Active 4 mg IVPUSH Q6H PRN Rosuvastatin [Crestor] Med 12/02/16 09:00 Active 20 mg PO DAILY Sennosides [Senna] Med 12/01/16 15:37 Active 8.6 mg PO BID PRN SitaGLIPtin [Januvia] Med 12/02/16 08:00 Active 25 mg PO QAM SitaGLIPtin [Januvia] Med 12/01/16 18:00 Active 50 mg PO QPM metFORMIN [Glucophage] Med 12/02/16 08:00 Active 250 mg PO QAM metFORMIN [Glucophage] Med 12/01/16 18:00 Active 500 mg PO QPM Antiembolic Hose [OM.PC] Per Unit Routine Oth 12/01/16 15:40 Ordered DVT/VTE Prophylaxis Reflex [OM.PC] Routine Oth 12/01/16 15:37 Ordered Ice Therapy [OM.PC] Per Unit Routine Oth 12/01/16 15:38 Ordered Sequential Compression Device [OM.PC] Per Unit Routine Oth 12/01/16 15:42 Ordered Resuscitation Status Routine Resus Stat 12/01/16 15:37 Ordered Medication Orders Aspirin (Ecotrin) 325 mg PO BID [facility] Last Admin: 12/02/16 10:17 Dose: 325 mg Bisacodyl (Dulcolax) 5 mg PO DAILY PRN PRN Reason: Constipation Carvedilol (Coreg) 12.5 mg PO BIDMEALS [facility] Last Admin: 12/02/16 06:42 Dose: 12.5 mg Admin: 12/01/16 21:15 Dose: Not Given Cholecalciferol (Vitamin D3) 1,000 units PO DAILY [facility] Last Admin: 12/02/16 10:17 Dose: 1,000 units Cyclobenzaprine HCl (Flexeril) 10 mg PO TID PRN PRN Reason: Spasms Last Admin: 12/02/16 06:49 Dose: 10 mg Docusate Sodium (Colace) 100 mg PO BID [facility] Last Admin: 12/02/16 10:17 Dose: 100 mg Admin: 12/01/16 20:51 Dose: 100 mg Famotidine (Pepcid) 20 mg PO BID [facility] Last Admin: 12/02/16 10:17 Dose: 20 mg Hydrochlorothiazide (Hydrochlorothiazide) 25 mg PO DAILY [facility] Last Admin: 12/02/16 10:18 Dose: 25 mg Lidocaine/Sodium Bicarbonate (Buffered Lidocaine 1% In Ns 8.4%) 0.25 ml IV ONETIME PRN PRN Reason: Prior to IV Start Last Admin: 12/01/16 10:59 Dose: 0.25 ml Losartan Potassium (Cozaar) 100 mg PO DAILY [facility] Last Admin: 12/02/16 10:17 Dose: 100 mg Magnesium Hydroxide (Milk Of Magnesia) 30 ml PO BID PRN PRN Reason: Constipation Magnesium Oxide (Magnesium Oxide) 400 mg PO DAILY [facility] Last Admin: 12/02/16 10:17 Dose: 400 mg Metformin HCl (Glucophage) 500 mg PO QPM [facility] Last Admin: 12/01/16 21:15 Dose: Not Given Metformin HCl (Glucophage) 250 mg PO QAM [facility] Last Admin: 12/02/16 10:18 Dose: 250 mg Metoclopramide HCl (Reglan) 5 mg IVPUSH Q6H PRN PRN Reason: Nausea Last Admin: 12/01/16 20:51 Dose: 5 mg Morphine Sulfate (Morphine) 2 mg IVPUSH Q2H PRN PRN Reason: Breakthrough Pain Last Admin: 12/02/16 10:20 Dose: 2 mg Multivitamins (Thera) 1 each PO WITHBREAKFAST [facility] Last Admin: 12/02/16 06:42 Dose: 1 each Ondansetron HCl (Zofran) 4 mg IVPUSH Q6H PRN PRN Reason: Nausea/Vomiting Last Admin: 12/01/16 18:50 Dose: 4 mg Oxycodone/Acetaminophen (Percocet 325-5 Mg) 1 - 2 tab PO Q4H PRN PRN Reason: Pain Last Admin: 12/02/16 14:54 Dose: 2 tab Admin: 12/02/16 04:03 Dose: 2 tab Admin: 12/02/16 00:07 Dose: 2 tab Rosuvastatin Calcium (Crestor) 20 mg PO DAILY [facility] Last Admin: 12/02/16 10:19 Dose: 20 mg Senna (Senna) 8.6 mg PO BID PRN PRN Reason: Constipation Sitagliptin Phosphate (Januvia) 50 mg PO QPM [facility] Last Admin: 12/01/16 21:15 Dose: Not Given Sitagliptin Phosphate (Januvia) 25 mg PO QAM [facility] Last Admin: 12/02/16 10:19 Dose: 25 mg Sodium Chloride (Saline Flush) 10 ml FLUSH ASDIRECTED PRN PRN Reason: Keep Vein Open - Assessment Assessment (Free Text/Narrative):: POD#1 - right TKA - Plan Plan (Free Text/Narrative):: 1. 325mg ASA BID for VTE prophylaxis. Frequent mobility. TEDs. 2. Outpatient P.T. 3. Discharge to home today. The pt will have assistance of her family members. 4. Percocet and Flexeril for pain management at home. 5. Close monitoring of blood sugars. The pt's case was discussed with Dr. Abdi today.
--- NOTE | 2016-12-02 16:36 | PCM.DCSUM1 ---
Discharge Summary - Hospital Course Brief History: Leigh is a 66 yo female who underwent right TKA with Dr. Abdi on 12-01-2016. The procedure was completed under spinal anesthesia with sedation. The pt tolerated the procedure well and was admitted to the Medical-Surgical Unit. Medical management was provided by the Hospitalist service. The pt's Hospital course was uneventful. The pt's Hgb on POD#1 was 10.2. On POD#1, 325mg ASA BID was initiated for VTE prophylaxis. SCDs and TEDs were also ordered. A Mepilex dressing was placed at the incision site at the time of surgery and remained clean and dry. The pt participated in P.T. and O.T. and progressed well. The pt was allowed to WBAT. On POD#1, the pt was deemed appropriate to discharge to home with family. She will attend outpatient P.T. - Discharge Data Discharge Date: 12/02/16 Discharge Disposition: Home, Self-Care 01 Condition: Good - Patient Summary/Data Consults: Consultations 12/01/16 15:37 Consult to Physician [CONS] Routine OT Evaluation and Treatment [CONS] Routine 12/01/16 15:41 PT Evaluation and Treatment [CONS] Routine - Patient Instructions Diet: Usual Diet as Tolerated Activity: Apply Ice, As Tolerated, Elevate Extremity, Full Weight Bearing Driving: Do Not Drive Showering/Bathing: May Shower Wound/Incision Care: Keep Operative Site/Wound Site Clean and Dry, Do NOT Change Dressing Notify Provider of: Fever, Increased Pain, Swelling and Redness, Drainage, Nausea and/or Vomiting Other/Special Instructions: Please get up and moving around every hour while awake. This helps to prevent blood clots. Please take 325mg aspirin TWICE daily - this also helps to prevent blood clots. The medication is being used for blood clot prevention and not for pain control, so please use the medication twice daily as directed. Please wear the AAMIR hose during the day and remove them at night. Please schedule for P.T. Complete the P.T. exercises and stretches that were instructed in the Hospital. Please use the pain medication and muscle relaxant as needed. Try to wean from use of the pain medication as able. The medication may cause drowsiness and/or constipation. You could use a stool softener like docusate sodium or Colace 100mg twice daily and/or a laxative like Miralax daily for constipation. Contact your primary care provider for further instructions if you are constipated. Please schedule an appointment with your primary care provider for 'routine post-op care'. Use the incentive spirometer often. Please place ice to the knee often. Please elevate the limb to decrease swelling. Keep the Mepilex dressing in place until follow-up. Please call [phone] with questions or concerns. - Discharge Plan Prescriptions/Med Rec: Acetaminophen/oxyCODONE [Percocet 325-5 MG] 1 - 2 tab PO Q4H PRN #60 tablet PRN Reason: Pain Aspirin [Ecotrin] 325 mg PO BID #84 tab.ec Cyclobenzaprine [Flexeril] 10 mg PO TID PRN #40 tablet PRN Reason: muscle spasms Home Medications: Home Meds Carvedilol [Coreg] 12.5 mg PO BID 02/16/15 [History] Losartan/Hydrochlorothiazide [Losartan-HCTZ 100-25 MG] 100 mg PO DAILY 02/16/15 [History] Magnesium 250 mg PO DAILY 02/16/15 [History] Multivitamin [One Daily] 1 tab PO DAILY 02/16/15 [History] atorvaSTATin [Lipitor] 80 mg PO DAILY 02/16/15 [History] sitaGLIPtin Phos/Metformin HCl [Janumet 50-500 MG] 1 tab PO QPM 02/16/15 [ History] sitaGLIPtin Phos/Metformin HCl [Janumet 50-500 MG] 0.5 tab PO QAM 02/19/15 [ History] Ascorbic Acid [Vitamin C] 500 mg PO DAILY tablet 02/21/15 [Rx] Cholecalciferol (Vitamin D3) [Vitamin D3] 1,000 mg PO DAILY 11/28/16 [History] Acetaminophen/oxyCODONE [Percocet 325-5 MG] 1 - 2 tab PO Q4H PRN #60 tablet 12/13 [Rx] Aspirin [Ecotrin] 325 mg PO BID #84 tab.ec 12/02/16 [Rx] Cyclobenzaprine [Flexeril] 10 mg PO TID PRN #40 tablet 12/02/16 [Rx] metFORMIN [Glucophage] 250 mg PO QAM tablet 12/02/16 [Rx] metFORMIN [Glucophage] 500 mg PO QPM tablet 12/02/16 [Rx] Patient Handouts: Total Knee Replacement, Care After, [id number], Total Knee Replacement, [id number], Knee Rehabilitation Guidelines Following Surgery Referrals: Stephanie Contreras PA-C [Physician Certified Tower Climber] - 12/09/16 11:45 am (2nd follow up appointment on 12/17 at 12:30 at [facility] at Dr. Abdi's clinic with Malka Contreras) - Patient Data Vitals - Most Recent: Last Vital Signs Temp 98.1 F 12/02/16 16:11 Pulse 66 12/02/16 16:11 Resp 14 12/02/16 16:11 BP 102/87 12/02/16 16:11 Pulse Ox 91 L 12/02/16 16:11 Weight - Most Recent: 251 lb 9.6 oz I&O - Last 24 hours: Intake & Output 12/02/16 12/02/16 12/02/16 06:59 14:59 22:59 Intake Total 0005 586 2516 Output Total 275 50 100 Balance 3488 368 2997 Lab Results - Last 24 hrs: Laboratory Results - last 24 hr 12/02/16 12/02/16 Range/Units 05:05 05:05 WBC 12.11 H (3.98-10.04) K/mm3 RBC 3.45 L (3.98-5.22) M/mm3 Hgb 10.2 L (11.2-15.7) gm/L Hct 30.6 L (34.1-44.9) % MCV 88.7 (79.4-94.8) fl MCH 29.6 (25.6-32.2) pg MCHC 33.3 (32.2-35.5) g/dl RDW Std Deviation 42.9 (36.4-46.3) fL Plt Count 170 L (182-369) K/mm3 MPV 11.5 (9.4-12.3) fl Neut % (Auto) 82.1 H (34.0-71.1) % Lymph % (Auto) 10.8 L (19.3-51.7) % [place] % (Auto) 6.6 (4.7-12.5) % Eos % (Auto) 0.2 L (0.7-5.8) Baso % (Auto) 0.1 (0.1-1.2) % Neut # (Auto) 9.94 H (1.56-6.13) K/mm3 Lymph # (Auto) 1.31 (1.18-3.74) K/mm3 [place] # (Auto) 0.80 H (0.24-0.36) K/mm3 Eos # (Auto) 0.02 L (0.04-0.36) K/mm3 Baso # (Auto) 0.01 (0.01-0.08) K/mm3 Sodium 136 (136-145) mEq/L Potassium 3.8 (3.5-5.1) mEq/L Chloride 102 (98-107) mEq/L Carbon Dioxide 27 (21-32) mEq/L Anion Gap 10.8 (5-15) BUN 20 H (7-18) mg/dL Creatinine 0.9 (0.55-1.02) mg/dL Est Cr Clr Drug Dosing 50.18 mL/min Estimated GFR (MDRD) > 60 (>60) mL/min BUN/Creatinine Ratio 22.2 H (14-18) Glucose 152 H (80-115) mg/dL Calcium 8.1 L (8.5-10.1) mg/dL Total Bilirubin 0.5 (0.2-1.0) mg/dL AST 29 (15-37) U/L ALT 25 (14-59) U/L Alkaline Phosphatase 94 (46-116) U/L Total Protein 6.4 (6.4-8.2) g/dl Albumin 2.9 L (3.4-5.0) g/dl Globulin 3.5 gm/dL Albumin/Globulin Ratio 0.8 L (1-2) Med Orders - Current: Current Medications Aspirin (Ecotrin) 325 mg PO BID [facility] Last Admin: 12/02/16 10:17 Dose: 325 mg Bisacodyl (Dulcolax) 5 mg PO DAILY PRN PRN Reason: Constipation Carvedilol (Coreg) 12.5 mg PO BIDMEALS [facility] Last Admin: 12/02/16 06:42 Dose: 12.5 mg Cholecalciferol (Vitamin D3) 1,000 units PO DAILY [facility] Last Admin: 12/02/16 10:17 Dose: 1,000 units Cyclobenzaprine HCl (Flexeril) 10 mg PO TID PRN PRN Reason: Spasms Last Admin: 12/02/16 06:49 Dose: 10 mg Docusate Sodium (Colace) 100 mg PO BID [facility] Last Admin: 12/02/16 10:17 Dose: 100 mg Famotidine (Pepcid) 20 mg PO BID [facility] Last Admin: 12/02/16 10:17 Dose: 20 mg Hydrochlorothiazide (Hydrochlorothiazide) 25 mg PO DAILY [facility] Last Admin: 12/02/16 10:18 Dose: 25 mg Lidocaine/Sodium Bicarbonate (Buffered Lidocaine 1% In Ns 8.4%) 0.25 ml IV ONETIME PRN PRN Reason: Prior to IV Start Last Admin: 12/01/16 10:59 Dose: 0.25 ml Losartan Potassium (Cozaar) 100 mg PO DAILY [facility] Last Admin: 12/02/16 10:17 Dose: 100 mg Magnesium Hydroxide (Milk Of Magnesia) 30 ml PO BID PRN PRN Reason: Constipation Magnesium Oxide (Magnesium Oxide) 400 mg PO DAILY [facility] Last Admin: 12/02/16 10:17 Dose: 400 mg Metformin HCl (Glucophage) 500 mg PO QPM [facility] Last Admin: 12/01/16 21:15 Dose: Not Given Metformin HCl (Glucophage) 250 mg PO QAM [facility] Last Admin: 12/02/16 10:18 Dose: 250 mg Metoclopramide HCl (Reglan) 5 mg IVPUSH Q6H PRN PRN Reason: Nausea Last Admin: 12/01/16 20:51 Dose: 5 mg Morphine Sulfate (Morphine) 2 mg IVPUSH Q2H PRN PRN Reason: Breakthrough Pain Last Admin: 12/02/16 10:20 Dose: 2 mg Multivitamins (Thera) 1 each PO WITHBREAKFAST [facility] Last Admin: 12/02/16 06:42 Dose: 1 each Ondansetron HCl (Zofran) 4 mg IVPUSH Q6H PRN PRN Reason: Nausea/Vomiting Last Admin: 12/01/16 18:50 Dose: 4 mg Oxycodone/Acetaminophen (Percocet 325-5 Mg) 1 - 2 tab PO Q4H PRN PRN Reason: Pain Last Admin: 12/02/16 14:54 Dose: 2 tab Rosuvastatin Calcium (Crestor) 20 mg PO DAILY [facility] Last Admin: 12/02/16 10:19 Dose: 20 mg Senna (Senna) 8.6 mg PO BID PRN PRN Reason: Constipation Sitagliptin Phosphate (Januvia) 50 mg PO QPM [facility] Last Admin: 12/01/16 21:15 Dose: Not Given Sitagliptin Phosphate (Januvia) 25 mg PO QAM [facility] Last Admin: 12/02/16 10:19 Dose: 25 mg Sodium Chloride (Saline Flush) 10 ml FLUSH ASDIRECTED PRN PRN Reason: Keep Vein Open Discontinued Medications Bupivacaine HCl (Marcaine 0.5%) Confirm Administered Dose 30 ml .ROUTE .STK-MED ONE Stop: 12/01/16 12:11 Last Admin: 12/01/16 14:47 Dose: 30 ml Bupivacaine HCl (Marcaine 0.25%) Confirm Administered Dose 30 ml .ROUTE .STK- MED ONE Stop: 12/01/16 13:07 Cefazolin Sodium (Ancef) Confirm Administered Dose 2 gm .ROUTE .STK-MED ONE Stop: 12/01/16 12:11 Last Admin: 12/01/16 14:42 Dose: 2 gm Cefazolin Sodium (Ancef) Confirm Administered Dose 2 gm .ROUTE .STK-MED ONE Stop: 12/01/16 13:45 Morphine Sulfate 8 mg/Epinephrine HCl 0.3 mg/Cefuroxime Sodium 750 mg/Ketorolac Tromethamine 30 mg/Sodium Chloride 27.9 ml 0 mg .XX ONETIME ONE Stop: 12/01/16 12:31 Last Admin: 12/01/16 14:46 Dose: 788.3 mg Diphenhydramine HCl (Benadryl) 25 mg IVPUSH Q6H PRN PRN Reason: pruritis Stop: 12/01/16 18:00 Enoxaparin Sodium (Lovenox) 40 mg SUBCUT DAILY [facility] Ephedrine Sulfate (Ephedrine In Ns) Confirm Administered Dose 25 mg .ROUTE .STK- MED ONE Stop: 12/01/16 15:00 Fentanyl (Sublimaze) Confirm Administered Dose 100 mcg .ROUTE .STK-MED ONE Stop: 12/01/16 10:07 Furosemide (Lasix) 10 mg IVPUSH NOW ONE Stop: 12/02/16 06:04 Last Admin: 12/02/16 06:49 Dose: 10 mg Lactated Ringer's (Ringers, Lactated) 1,000 mls @ 125 mls/hr IV ASDIRECTED [facility] Last Admin: 12/01/16 11:00 Dose: 125 mls/hr Lidocaine HCl (Xylocaine-Mpf 1%) Confirm Administered Dose 4 mls @ as directed .ROUTE .STK-MED ONE Stop: 12/01/16 10:05 Cefazolin Sodium/Dextrose 2 gm (/ Premix) 50 mls @ 100 mls/hr IV Q8H [facility] Stop: 12/02/16 14:29 Last Admin: 12/02/16 14:55 Dose: 100 mls/hr Sodium Chloride (Normal Saline) 1,000 mls @ 150 mls/hr IV ASDIRECTED [facility] Last Admin: 12/02/16 02:11 Dose: 150 mls/hr Sodium Chloride (Normal Saline) 500 mls @ 999 mls/hr IV .BOLUS ONE Stop: 12/02/16 06:34 Last Admin: 12/02/16 06:41 Dose: 999 mls/hr Iodine (Iodine 2% Mild Tincture) Confirm Administered Dose 30 ml .ROUTE .STK- MED ONE Stop: 12/01/16 12:11 Last Admin: 12/01/16 14:39 Dose: 18 ml Midazolam HCl (Versed 1 Mg/Ml) Confirm Administered Dose 2 mg .ROUTE .STK-MED ONE Stop: 12/01/16 09:57 Morphine Sulfate (Duramorph Pf) Confirm Administered Dose 10 mg .ROUTE .STK-MED ONE Stop: 12/01/16 10:08 Naloxone HCl (Narcan) 0.1 mg IVPUSH Q5M PRN PRN Reason: Oversedation Stop: 12/01/16 15:53 Ondansetron HCl (Zofran) 4 mg IVPUSH ONETIME PRN PRN Reason: Nausea/Vomiting Stop: 12/01/16 18:00 Ondansetron HCl (Zofran) Confirm Administered Dose 4 mg .ROUTE .STK-MED ONE Stop: 12/01/16 14:03 Phenylephrine HCl (Phenylephrine In Ns 100 Mcg/Ml) Confirm Administered Dose 1 mg .ROUTE .STK-MED ONE Stop: 12/01/16 14:56 Propofol (Diprivan 20 Ml) Confirm Administered Dose 600 mg .ROUTE .STK-MED ONE Stop: 12/01/16 09:57 Propofol (Diprivan 20 Ml) Confirm Administered Dose 200 mg .ROUTE .STK-MED ONE Stop: 12/01/16 14:58 Tamsulosin HCl (Flomax) 0.4 mg PO ONETIME ONE Stop: 12/02/16 06:10 Last Admin: 12/02/16 06:49 Dose: 0.4 mg Tranexamic Acid (Cyklokapron) Confirm Administered Dose 1,000 mg .ROUTE .STK- MED ONE Stop: 12/01/16 12:11 Last Admin: 12/01/16 14:56 Dose: 1,000 mg *Q Meaningful Use (DIS) - VTE *Q VTE Criteria *Q: - Stroke *Q Stroke Criteria *Q: - AMI *Q AMI Criteria *Q:
[2016-12-02] MEDS: metFORMIN 500 MG Tab PO SCH (17:39)
[2016-12-02 17:40] VITALS: BP 115/65
--- NOTE | 2016-12-08 10:24 | PCM.OPNOTE ---
- General Post-Op/Procedure Note Date of Surgery/Procedure: 12/01/16 Operative Procedure(s): right total knee arthroplasty Pre Op Diagnosis: right knee osteoarthrosis Post-Op Diagnosis: Same Anesthesia Technique: Local, MAC, Spinal Primary Surgeon: Demarco Abdi Anesthesia Provider: Zeynep Alvarado Dietitian Chief: Stephanie Contreras Dietitian Chief: Monik Ludwig EBL in mLs: 250 Complications: None Condition: Good
--- NOTE | 2016-12-08 18:09 | OR ---
DATE OF OPERATION: 12/01/2016 SURGEON: Demarco Abdi MD OPERATION PERFORMED: Right total knee arthroplasty. PREOPERATIVE DIAGNOSIS: Right knee osteoarthrosis. POSTOPERATIVE DIAGNOSIS: Right knee osteoarthrosis. ANESTHESIA: Local MAC with spinal. ANESTHESIA PROVIDER: Luis Blas. LOSS PREVENTION GUARD: Stephanie Contreras PA-C and Monik Ludwig LPN. ESTIMATED BLOOD LOSS: 250 mL COMPLICATIONS: None. CONDITION: Stable. IMPLANTS: 1. Hoffman size 4 PS femur. 2. Hoffman size 3 universal tibial base plate. 3. Taco size 3, 9 mm PS X3 polyethylene. 4. Hoffman 32 x 10 mm asymmetric patella. DESCRIPTION OF PROCEDURE: The patient was identified in the preop holding area. Proper site was marked and identified by the surgeon. The patient was taken back to the operating theater. After adequate anesthesia, the patient's right lower extremity had a nonsterile tourniquet applied and it was then sterilely prepped and draped in the usual sterile fashion. OR timeout was performed. The patient received 2 g IV Ancef. At this time, right lower extremity was exsanguinated. Tourniquet was insufflated to 300 mmHg. Standard medial parapatellar incision was made. Medial parapatellar arthrotomy was created. Deep fibers of the MCL were raised and anterior fat pad was resected. At this time, attention was turned to the patella. Patella measured 23, it was resected to a 13 for a 32 x 10 mm patella. Drill holes were then drilled and found to be in adequate position. The drill was then drilled in the distal femur and the intramedullary distal femoral cutting guide was then placed. 8 mm was resected off the distal femur and was found to be an adequate resection. Sizing guide was placed. It was found to be a size 4 PS femur that was shown on the implant record at the beginning of this dictation. The drill holes were drilled for the epicondylar axis using Whitesides line and epicondyles as reference. At this time, the 4-in-1 cutting block was placed. An anterior posterior and anterior and posterior chamfer cuts were then completed. The correct size box cut was then placed and the box cut was completed and found to be an adequate resection. Attention was turned to the tibia. The posterior medial lateral retractors were placed. The extramedullary tibial guide was placed. It was placed in the old footprint of the ACL. It was aligned with the center of the ankle and 0 degrees of slope, 9 mm was then resected off the unaffected lateral side. There was found to be an acceptable reduction. At this time, posterior osteophytes were removed along with medial and lateral meniscus. A trial implant was placed with a correct sized tibia that was mentioned at the beginning of the dictation. A 9 mm trial spacer was placed. A 9 mm PS X3 polyethylene was then placed. The patient's knee was brought through range of motion. The patella was tracking centrally and was stable to varus and valgus stress. Alignment was found to be roughly at 0 degrees. At this time, cement was mixed on the back table. The tibia was stamped and drilled in proper rotation. All cut surfaces were irrigated with pulse lavage irrigation with Ancef and then completely dried. Once this was completed, then the cement was ready. The universal tibial base plate was cemented in place. Next, the 4 PS femur cemented into place and the 9 mm PS X3 polyethylene was placed. The patient's knee was brought into full extension. Excess cement was removed. The patella was then cemented in place at this time. Tourniquet was deflated. One liter dilute Betadine solution was irrigated through the knee along with 3 L of pulse lavage irrigation with Ancef. Periarticular injection was then completed. The patient's knee was brought through a range of motion. Once the cement had time to set up and it was found to be stable to varus valgus stress, the patella was tracking centrally with full range of motion. At this time, a #2 barbed suture was used for closure of the medial parapatellar arthrotomy. Topical tranexamic acid was placed. 2-0 Vicryl was used subcutaneously, a running 3-0 Monocryl was used subcuticularly. The patient tolerated the procedure well and was sent to the PACU in stable condition. MAURISIO /[id number]
== END 2016-12-02 18:15 | disposition home or self-care (01) | DRG 470 ==
LOC: JD.MS 10:28
PROVIDERS: ADMIT Orthopaedic Surgery; ATTEND Orthopaedic Surgery
PROC: 0SRC0J9 Replacement of Right Knee Joint with Synthetic Substitute, Cemented, Open Approach (ICD-10-PCS; principal; 2016-12-01)
DX: M17.11 Unilateral primary osteoarthritis, right knee (principal); I10 Essential (primary) hypertension; E78.00 Pure hypercholesterolemia, unspecified; E11.9 Type 2 diabetes mellitus without complications; I25.10 Atherosclerotic heart disease of native coronary artery without angina pectoris; E78.5 Hyperlipidemia, unspecified; J44.9 Chronic obstructive pulmonary disease, unspecified; J30.9 Allergic rhinitis, unspecified; Z79.82 Long term (current) use of aspirin; Z88.8 Allergy status to other drugs, medicaments and biological substances; Z79.899 Other long term (current) drug therapy
CPT/HCPCS: 01402; 36415; 73560-26-RT; 73560-RT; 80053; 82962; 85025; 94762; 97110-GP; 97116-GP; 97161-GP; 97166-GO; 97535-GO; A9270-GY; C1713; C1776; J0171; J0690; J0697; J1885; J2250; J2270; J2405; J2704; J2765; J3010; J3490; J7040; J7050; J7120

== ENCOUNTER 2018-11-24 07:46 | Day surgery (SDC) | payer MEDICARE, OTHER ==
[~2018-11-24 07:46] MED LIST changes: +Lidocaine 1%/Sod Bicarbonate in NS 8.4% 1 ML Syringe IDERM PRN; -Lidocaine 1%/Sod Bicarbonate in NS 8.4% 1 ML Syringe IV PRN; +Propofol 200 MG/20 ML SDV ONE
--- NOTE | 2018-11-24 08:01 | PCM.PREANE ---
Preanesthetic Assessment - Anesthesia/Transfusion/Family Hx Anesthesia History: Prior Anesthesia Without Reaction Family History of Anesthesia Reaction: No Transfusion History: Prior Transfusion Without Reaction Intubation History: Unknown - Review of Systems General: No Symptoms Pulmonary: No Symptoms Cardiovascular: No Symptoms Gastrointestinal: Abdominal Pain Neurological: No Symptoms Other: Reports: Diabetes - Physical Assessment NPO Status Date: 11/23/18 NPO Status Time: 11:55 ASA Class: 3 Mental Status: Alert & Oriented x3 Airway Class: Mallampati = 2 Dentition: Reports: Normal Dentition ROM/Head Extension: Full Cardiovascular: Regular Rate, Regular Rhythm, No Murmurs - Allergies Allergies/Adverse Reactions: Allergies Allergy/AdvReac Type Severity Reaction Status Date / Time clopidogrel bisulfate Allergy difficulty Verified 04/02/18 10:21 [From Plavix] breathing, facial swelling, throat swelling - Blood Blood Available: No Product(s) Available: None - Anesthesia Plan Beta Cortez: Carvedilol - Acknowledgements Anesthesia Type Planned: Epidural Pt an Appropriate Candidate for the Planned Anesthesia: Yes Alternatives and Risks of Anesthesia Discussed w Pt/Guardian: Yes Pt/Guardian Understands and Agrees with Anesthesia Plan: Yes Additional Comments: 2 takes medicine for diabetesstents 20 yrs ago PreAnesthesia Questionnaire HEENT History: Reports: Allergic Rhinitis, Cataract, Glaucoma, Impaired Vision, Other (See Below) Other HEENT History: wears glasses Cardiovascular History: Reports: Arrhythmia, Heart Failure, High Cholesterol, Hypertension, [place], Stents Other Cardiovascular History: heart disease, varicose veins, ischemia Respiratory History: Reports: Bronchitis, Recurrent, COPD, Sleep Apnea Other Respiratory History: cough Gastrointestinal History: Reports: GERD Genitourinary History: Reports: STD, Other (See Below) Other Genitourinary History: chronic kidney disease 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 OB/BYN History: c section (32 yrs ago) Musculoskeletal History: Reports: Arthritis, Osteoporosis, Other (See Below) Other Musculoskeletal History: R elbow pain and swelling, 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, metatarsal fracture, hallux valgus, backache, left foot fracutre, bilateral total knees Neurological History: Reports: Seizure Psychiatric History: Reports: Anxiety, Depression Endocrine/Metabolic History: Reports: Diabetes, Type II, Obesity/BMI 30+, Vitamin D Deficiency Hematologic History: Reports: Anemia, Blood Transfusion(s) Immunologic History: Reports: None Oncologic (Cancer) History: Reports: None Dermatologic History: Reports: None, Other (See Below) Other Dermatologic History: corn and callouses, dermatophytosis - Infectious Disease History Infectious Disease History: Reports: Chicken Pox, Measles, Mumps - Past Surgical History Head Surgeries/Procedures: Reports: None HEENT Surgical History: Reports: None Respiratory Surgical History: Reports: None GI Surgical History: Reports: Colonoscopy Female Surgical History: Reports: Section Male Surgical History: Reports: None Endocrine Surgical History: Reports: None Musculoskeletal Surgical History: Reports: Carpal Tunnel, Knee Replacement Oncologic Surgical History: Reports: None - HOME MEDS Home Medications: Home Meds Carvedilol [Coreg] 12.5 mg PO BID 02/16/15 [History] Magnesium 500 mg PO DAILY 02/16/15 [History] Multivitamin [One Daily] 1 tab PO DAILY 02/16/15 [History] atorvaSTATin [Lipitor] 80 mg PO DAILY 02/16/15 [History] sitaGLIPtin Phos/Metformin HCl [Janumet 50-500 MG] 1 tab PO QPM 02/16/15 [ History] sitaGLIPtin Phos/Metformin HCl [Janumet 50-500 MG] 0.5 tab PO QAM 02/19/15 [ History] Ascorbic Acid [Vitamin C] 500 mg PO DAILY tablet 02/21/15 [Rx] Cholecalciferol (Vitamin D3) [Vitamin D3] 2,000 mg PO DAILY 11/28/16 [History] Aspirin [Halfprin] 81 mg PO DAILY 04/01/18 [History] Losartan/Hydrochlorothiazide [Losartan-HCTZ 100-12.5 MG] 1 tab PO DAILY [History] - CURRENT (IN HOUSE) MEDS Current Meds: Current Medications Lactated Ringer's (Ringers, Lactated) 1,000 mls @ 125 mls/hr IV ASDIRECTED GUY Stop: 11/24/18 23:00 Lidocaine/Sodium Bicarbonate (Buffered Lidocaine 1% In Ns 8.4%) 0.25 ml IDERM ONETIME PRN PRN Reason: Prior to IV Start Stop: 11/24/18 18:00 Sodium Chloride (Saline Flush) 10 ml FLUSH ASDIRECTED PRN PRN Reason: Keep Vein Open Stop: 11/24/18 18:00 Discontinued Medications Propofol (Diprivan 20 Ml) Confirm Administered Dose 200 mg .ROUTE .STK-MED ONE Stop: 11/24/18 07:35
[2018-11-24] MEDS ORDERED: Propofol 200 MG/20 ML SDV ONE ×2 (09:05→09:13)
--- NOTE | 2018-11-24 09:28 | PCM48HPAN ---
Post Anesthesia Note - EVALUATION WITHIN 48HRS OF ANESTHETIC Respiratory Function Stable: Yes Airway Patent: Yes Cardiovascular Function Stable: Yes Hydration Status Stable: Yes Pain Control Satisfactory: Yes Nausea and Vomiting Control Satisfactory: Yes Mental Status Recovered: Yes Resp Rate: 20
--- NOTE | 2018-11-24 09:28 | PCM.POSTAN ---
POST ANESTHESIA ASSESSMENT - MENTAL STATUS Mental Status: Alert - CARDIOVASCULAR CV Status: Pulse Rate WNL, Blood Pressure Stable - GASTROINTESTINAL GI Status: No Symptoms - POST OP HYDRATION Hydration Status: Adequate & Stable
[2018-11-24 10:08] VITALS: BP 139/72
--- NOTE | 2018-11-24 15:11 | OR ---
DATE OF OPERATION: 11/24/2018 SURGEON: Valdo Jin MD PREOPERATIVE DIAGNOSIS: History of adenomatous colon polyps. POSTOPERATIVE DIAGNOSIS: History of adenomatous colon polyps. OPERATION PERFORMED: Screening colonoscopy. ANESTHESIA: MAC. FINDINGS: Sigmoid diverticulosis. She had an excellent bowel prep. I found no additional polyps. DISPOSITION: Stable at the end of procedure. PATHOLOGY: None. INDICATION: The patient is a 68-year-old female 6 months out from her previous colonoscopy. She had an incomplete colonoscopy due to a poor bowel prep. I saw her in the office and arranged for a repeat colonoscopy. She had serrated adenomas x2 on her previous colonoscopy. The patient was offered a screening colonoscopy. She was fully informed of the major risks, benefits, and alternatives. The risks include, but are not limited to perforation of the colon, bleeding, the risks of anesthesia, and the possibility of further surgery. She gave informed consent to what was done. DESCRIPTION OF PROCEDURE: The patient was brought to the gastro suite and placed in the left lateral decubitus position and she was given monitored anesthesia. A digital rectal exam was performed. This was unremarkable. I introduced the colonoscope into the rectum, I advanced the scope keeping the lumen in view at all times with A gentle forward pressure. I documented the cecum photographically. I slowly investigated mucosa of the colon from the cecum back to the anus in an exam lasting 7 minutes. Identified no polyps, she had some scattered sigmoid diverticulosis. The remainder of her colonoscopy was unremarkable. She had an excellent bowel prep. At the end of the procedure, the scope was withdrawn. She was awake from anesthesia, moved to recovery in stable condition. PLAN: She will need to have another scope in 5 years based on her history of adenomatous polyps in the colon. ESTIMATED BLOOD LOSS: MMODAL /[id number]
== END 2018-11-24 10:00 | disposition home or self-care (01) ==
LOC: JD.SDS 07:46
PROVIDERS: ATTEND Surgery
DX: Z09 Encounter for follow-up examination after completed treatment for conditions other than malignant neoplasm (principal); K57.30 Diverticulosis of large intestine without perforation or abscess without bleeding; K21.9 Gastro-esophageal reflux disease without esophagitis; I13.0 Hypertensive heart and chronic kidney disease with heart failure and stage 1 through stage 4 chronic kidney disease, or unspecified chronic kidney disease; E11.22 Type 2 diabetes mellitus with diabetic chronic kidney disease; I50.9 Heart failure, unspecified; N18.9 Chronic kidney disease, unspecified; I25.2 Old myocardial infarction; J44.9 Chronic obstructive pulmonary disease, unspecified; M54.31 Sciatica, right side; M81.0 Age-related osteoporosis without current pathological fracture; M19.021 Primary osteoarthritis, right elbow; E78.00 Pure hypercholesterolemia, unspecified; Z88.8 Allergy status to other drugs, medicaments and biological substances; Z95.5 Presence of coronary angioplasty implant and graft; Z86.010 Personal history of colon polyps; Z80.0 Family history of malignant neoplasm of digestive organs; Z79.82 Long term (current) use of aspirin; Z79.84 Long term (current) use of oral hypoglycemic drugs; Z79.899 Other long term (current) drug therapy
CPT/HCPCS: 45378; 82962; 93005; J2704; J7120; 00812

== ENCOUNTER 2020-04-02 19:04 | Emergency (ER) | payer MEDICARE, OTHER ==
[2020-04-02 19:36] VITALS: PULSE 66
[2020-04-02 19:46] VITALS: BP 167/79
--- NOTE | 2020-04-02 19:46 | EDM.PDOC ---
ED HPI GENERAL MEDICAL PROBLEM - General Chief Complaint: Respiratory Problem Stated Complaint: COVID POSITIVE TROUBLE BREATHING Time Seen by Provider: 04/02/20 19:36 Source of Information: Reports: Patient History Limitations: Reports: No Limitations - History of Present Illness INITIAL COMMENTS - FREE TEXT/NARRATIVE: 69-year-old female presents the ED for evaluation of gradually worsening dyspnea. Patient was diagnosed with COVID-19 illness on March 26. This is part of a routine screening program as other family members had come down with COVID-19 illness. At the time she went for a trip evaluation she started to develop symptoms later that afternoon with fever chills headache diffuse myalgia and sore throat for 3 days. Now she is more short of breath on minimal exertion. Mild minimally productive cough of whitish sputum. Severely decreased appetite. She is only taken in a bit of fluids today. Diarrhea usually twice per day yellow in color. Generalized weakness. Lightheaded and dizziness upon standing. No falls at home. is also ill with COVID-19 at this time. Risk factors are that of type 2 diabetes controlled with Jardiance. She is not been checking her blood sugars. She is mildly obese. Onset: Gradual Onset Date: 03/26/20 Duration: Day(s):, Constant, Getting Worse Location: Reports: Chest (Joanne worsening shortness of breath. Continued paroxysmal minimally productive cough.), Other (Generalized weakness. Poor appetite poor oral intake.) Quality: Reports: Ache (Generalized deep aching pain.) Severity: Moderate Improves with: Reports: None Worsens with: Reports: Movement Context: Reports: Sick Contact. Denies: Activity, Exercise, Lifting, Trauma, Other Associated Symptoms: Reports: Cough (White sputum says mall), cough w sputum, Fever/Chills, Headaches (She will fever chills for the first 3 days better now.), Loss of Appetite ( Mild headache at this time), Malaise, Shortness of Breath, Weakness, Other (Area to usually 2 times daily yellow in color). 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 - Related Data Allergies Allergy/AdvReac Type Severity Reaction Status Date / Time clopidogrel bisulfate Allergy difficulty Verified 04/02/20 19:35 [From Plavix] breathing, facial swelling, throat swelling Home Meds: Home Meds Multivitamin [One Daily] 1 tab PO DAILY 02/16/15 [History] atorvaSTATin [Lipitor] 80 mg PO DAILY 02/16/15 [History] carvediloL [Coreg] 12.5 mg PO BID 02/16/15 [History] sitaGLIPtin Phos/Metformin HCl [Janumet 50-500 MG] 1 tab PO BID 02/16/15 [History] Cholecalciferol (Vitamin D3) [Vitamin D3] 2,000 mg PO DAILY 11/28/16 [History] Aspirin [Halfprin] 81 mg PO DAILY 04/01/18 [History] Losartan/Hydrochlorothiazide [Losartan-HCTZ 100-12.5 MG] 1 tab PO DAILY 04/01/18 [History] Magnesium Chloride [Slow-Mag] 71.5 mg PO DAILY #10 tablet.dr 04/02/20 [Rx] dexAMETHasone [Dexamethasone] 6 mg PO BID #10 tab 04/02/20 [Rx] Past Medical History HEENT History: Reports: Allergic Rhinitis, Cataract, Glaucoma, Impaired Vision, Other (See Below) Other HEENT History: wears glasses Cardiovascular History: Reports: Arrhythmia, Heart Failure, High Cholesterol, Hypertension, RI, Stents Other Cardiovascular History: heart disease, varicose veins, ischemia Respiratory History: Reports: Bronchitis, Recurrent, COPD, Sleep Apnea Other Respiratory History: cough Gastrointestinal History: Reports: GERD Genitourinary History: Reports: STD, Other (See Below) Other Genitourinary History: chronic kidney disease 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: 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 TOUR ACTOR History: c section (32 yrs ago) Musculoskeletal History: Reports: Arthritis, Osteoporosis, Other (See Below) Other Musculoskeletal History: R elbow pain and swelling, 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, metatarsal fracture, hallux valgus, backache, left foot fracutre, bilateral total knees Neurological History: Reports: Seizure Psychiatric History: Reports: Anxiety, Depression Endocrine/Metabolic History: Reports: Diabetes, Type II, Obesity/BMI 30+, Vitamin D Deficiency Hematologic History: Reports: Anemia, Blood Transfusion(s) Immunologic History: Reports: None Oncologic (Cancer) History: Reports: None Dermatologic History: Reports: None, Other (See Below) Other Dermatologic History: corn and callouses, dermatophytosis - Infectious Disease History Infectious Disease History: Reports: Chicken Pox, Measles, Mumps - Past Surgical History Head Surgeries/Procedures: Reports: None HEENT Surgical History: Reports: None Respiratory Surgical History: Reports: None GI Surgical History: Reports: Colonoscopy Female Surgical History: Reports: Section Male Surgical History: Reports: None Endocrine Surgical History: Reports: None Musculoskeletal Surgical History: Reports: Carpal Tunnel, Knee Replacement Oncologic Surgical History: Reports: None Social & Family History - Family History Cardiac: Reports: Afib, Heart Failure OBGYN: Reports: Endocrine/Metabolic: Reports: Diabetes, type II Oncologic: Reports: Colon, Lung - Caffeine Use Caffeine Use: Reports: Soda - Living Situation & Occupation Living situation: Reports: Occupation: Retired ED ROS GENERAL - Review of Systems Review Of Systems: See Below Constitutional: Reports: Fever, Malaise, Weakness, Fatigue, Decreased Appetite (To [place] she is lost about 10 pounds thus far), Weight Loss. Denies: Chills HEENT: Reports: Glasses Respiratory: Reports: Shortness of Breath, Cough, Sputum (Patient occasional white sputum). Denies: Wheezing, Pleuritic Chest Pain Cardiovascular: Reports: Blood Pressure Problem, Dyspnea on Exertion. Denies: Chest Pain, Claudication, Edema, Lightheadedness, Orthopnea (Primary hypertensio n) Endocrine: Reports: Fatigue GI/Abdominal: Reports: Diarrhea (Diarrhea usually 2 3 2-3 times daily loose and yellow.), Decreased Appetite. Denies: Nausea, Vomiting : Reports: No Symptoms (Is appreciated the urine is darker in color.) Musculoskeletal: Reports: Muscle Pain (Generalized myalgia particularly neck low back and thigh muscles.) Skin: Reports: No Symptoms Neurological: Reports: Dizziness, Headache, Difficulty Walking (Due to weaknes s), Weakness. Denies: Confusion, Numbness, Syncope, Tingling Psychiatric: Reports: No Symptoms Hematologic/Lymphatic: Reports: No Symptoms Immunologic: Reports: No Symptoms ED EXAM, GENERAL - Physical Exam Exam: See Below Exam Limited By: No Limitations General Appearance: Alert, WD/WN, No Apparent Distress, Other (Temperature is 36.3. Heart rate 66 in sinus respiratory is 18 with O2 sats of 94% on room air BP 158/80.) Eye Exam: Bilateral Eye: Normal Inspection, PERRL Throat/Mouth: Normal Inspection, Normal Lips, Normal Oropharynx (Tongue is minimally dry.), Other Head: Atraumatic, Normocephalic Neck: Normal Inspection, Supple, Non-Tender, Full Range of Motion. No: Carotid Bruit, Lymphadenopathy (L), Lymphadenopathy (R) Respiratory/Chest: No Respiratory Distress, Lungs Clear, Normal Breath Sounds, No Accessory Muscle Use. No: Respiratory Distress Cardiovascular: Normal Peripheral Pulses, Regular Rate, Rhythm, No Edema, No Gallop, No Murmur, No Rub Peripheral Pulses: 2+: Posterior Tibial (L), Posterior Tibial (R), Dorsalis Pedis (L), Dorsalis Pedis (R), 3+: Carotid (L), Carotid (R) GI/Abdominal: Normal Bowel Sounds, Soft, Non-Tender, No Abnormal Bruit, No Mass, Pelvis Stable, Other (Mildly obese.). No: Guarding, Rigid, Rebound, Tender Back Exam: Normal Inspection, Full Range of Motion. No: CVA Tenderness (L), CVA Tenderness (R) Extremities: Normal Inspection, Normal Range of Motion, Non-Tender, No Pedal Edema Neurological: Alert, Oriented, CN II-XII Intact, Normal Cognition, No Motor/Sensory Deficits Psychiatric: Normal Affect, Normal Mood Skin Exam: Warm, Dry, Intact, Normal Color, No Rash EKG INTERPRETATION EKG Date: 04/02/20 Time: 20:01 Rhythm: NSR Rate (Beats/Min): 68 [place]: Normal P-Wave: Present QRS: Other ST-T: Other QT: Prolonged Course - Vital Signs Last Recorded V/S: Last Vital Signs Temp 36.3 C 04/02/20 19:29 Pulse 66 04/02/20 19:29 Resp 20 04/02/20 19:38 BP 167/79 H 04/02/20 19:38 Pulse Ox 96 04/02/20 19:38 - Orders/Labs/Meds Orders: Active Orders 24 hr Category Date Time Status EKG Documentation Completion [RC] STAT Care 04/02/20 19:49 Active EKG Documentation Completion [RC] STAT Care 04/02/20 19:50 Active Chest 1V Frontal [CR] Stat Exams 04/02/20 19:49 Taken URINALYSIS W/MICROSCOPIC [UA W/MICROSCOPIC] [URIN] Stat Lab 04/02/20 19:51 Ordered Sodium Chloride 0.9% [Normal Saline] 1,000 ml Med 04/02/20 20:00 Active IV ASDIRECTED Medication Orders Sodium Chloride (Normal Saline) 1,000 mls @ 999 mls/hr IV ASDIRECTED GUY Last Admin: 04/02/20 20:01 Dose: 999 mls/hr Documented by: VALENCIA Labs: Laboratory Tests 04/02/20 04/02/20 04/02/20 Range/Units 19:50 19:50 19:50 WBC 6.02 (3.98-10.04) K/mm3 RBC 4.42 (3.98-5.22) M/mm3 Hgb 12.3 (11.2-15.7) gm/dl Hct 37.3 (34.1-44.9) % MCV 84.4 (79.4-94.8) fl MCH 27.8 (25.6-32.2) pg MCHC 33.0 (32.2-35.5) g/dl RDW Std Deviation 45.4 (36.4-46.3) fL Plt Count 219 (182-369) K/mm3 MPV 10.2 (9.4-12.3) fl Neut % (Auto) 54.1 (34.0-71.1) % Lymph % (Auto) 32.9 (19.3-51.7) % [place] % (Auto) 11.5 (4.7-12.5) % Eos % (Auto) 1.2 (0.7-5.8) Baso % (Auto) 0.3 (0.1-1.2) % Neut # (Auto) 3.26 (1.56-6.13) K/mm3 Lymph # (Auto) 1.98 (1.18-3.74) K/mm3 [place] # (Auto) 0.69 H (0.24-0.36) K/mm3 Eos # (Auto) 0.07 (0.04-0.36) K/mm3 Baso # (Auto) 0.02 (0.01-0.08) K/mm3 PT 10.9 (9.7-11.7) SECONDS INR 1.02 D-Dimer, Quantitative 1.13 H (0.19-0.50) mg/L Sodium 137 (136-145) mEq/L Potassium 3.6 (3.5-5.1) mEq/L Chloride 98 (98-107) mEq/L Carbon Dioxide 29 (21-32) mEq/L Anion Gap 13.6 (5-15) BUN 18 (7-18) mg/dL Creatinine 1.1 H (0.55-1.02) mg/dL Est Cr Clr Drug Dosing 39.37 mL/min Estimated GFR (MDRD) 49 (>60) mL/min BUN/Creatinine Ratio 16.4 (14-18) Glucose 119 H (80-115) mg/dL Hemoglobin A1c (4.50-6.20) % Calcium 9.0 (8.5-10.1) mg/dL Magnesium 1.4 L (1.8-2.4) mg/dl Ferritin (8-252) ng/ml Total Bilirubin 0.5 (0.2-1.0) mg/dL AST 31 (15-37) U/L ALT 31 (14-59) U/L Alkaline Phosphatase 97 (46-116) U/L Lactate Dehydrogenase 215 (81-234) U/L Troponin I < 0.017 (0.00-0.056) ng/mL C-Reactive Protein 0.6 (<1.0) mg/dL NT-Pro-B Natriuret Pep (0-125) pg/mL Total Protein 7.8 (6.4-8.2) g/dl Albumin 3.3 L (3.4-5.0) g/dl Globulin 4.5 gm/dL Albumin/Globulin Ratio 0.7 L (1-2) 04/02/20 04/02/20 04/02/20 Range/Units 19:50 19:50 19:50 WBC (3.98-10.04) K/mm3 RBC (3.98-5.22) M/mm3 Hgb (11.2-15.7) gm/dl Hct (34.1-44.9) % MCV (79.4-94.8) fl MCH (25.6-32.2) pg MCHC (32.2-35.5) g/dl RDW Std Deviation (36.4-46.3) fL Plt Count (182-369) K/mm3 MPV (9.4-12.3) fl Neut % (Auto) (34.0-71.1) % Lymph % (Auto) (19.3-51.7) % [place] % (Auto) (4.7-12.5) % Eos % (Auto) (0.7-5.8) Baso % (Auto) (0.1-1.2) % Neut # (Auto) (1.56-6.13) K/mm3 Lymph # (Auto) (1.18-3.74) K/mm3 [place] # (Auto) (0.24-0.36) K/mm3 Eos # (Auto) (0.04-0.36) K/mm3 Baso # (Auto) (0.01-0.08) K/mm3 PT (9.7-11.7) SECONDS INR D-Dimer, Quantitative (0.19-0.50) mg/L Sodium (136-145) mEq/L Potassium (3.5-5.1) mEq/L Chloride (98-107) mEq/L Carbon Dioxide (21-32) mEq/L Anion Gap (5-15) BUN (7-18) mg/dL Creatinine (0.55-1.02) mg/dL Est Cr Clr Drug Dosing mL/min Estimated GFR (MDRD) (>60) mL/min BUN/Creatinine Ratio (14-18) Glucose (80-115) mg/dL Hemoglobin A1c 6.80 H (4.50-6.20) % Calcium (8.5-10.1) mg/dL Magnesium (1.8-2.4) mg/dl Ferritin 32 (8-252) ng/ml Total Bilirubin (0.2-1.0) mg/dL AST (15-37) U/L ALT (14-59) U/L Alkaline Phosphatase (46-116) U/L Lactate Dehydrogenase (81-234) U/L Troponin I (0.00-0.056) ng/mL C-Reactive Protein (<1.0) mg/dL NT-Pro-B Natriuret Pep 208 H (0-125) pg/mL Total Protein (6.4-8.2) g/dl Albumin (3.4-5.0) g/dl Globulin gm/dL Albumin/Globulin Ratio (1-2) Meds: Medications Generic Name Dose Route Start Last Admin Trade Name Freq PRN Reason Stop Dose Admin Sodium Chloride 1,000 mls @ 999 mls/hr 04/02/20 20:00 04/02/20 20:01 Normal Saline IV 999 mls/hr ASDIRECTED GUY Administration Discontinued Medications Generic Name Dose Route Start Last Admin Trade Name Mary PRN Reason Stop Dose Admin Dexamethasone 6 mg 04/02/20 21:06 Dexamethasone IVPUSH 04/02/20 21:07 ONETIME ONE - Radiology Interpretation Free Text/Narrative:: 69-year-old female presents the ED for evaluation of gradually worsening dyspnea in the face of diagnosis of COVID-19 illness 7 days ago. The sore throat headache fever and chills for the most part has abated. She is dyspneic on minimal exertion. Mild paroxysmal nonproductive cough. Mild loose diarrhea stools. Very poor appetite and poor oral intake for 2 days. Feels lightheaded and dizzy upon standing. O2 sats are 94% on room air. They will travel as high as 96%. Plan she will have a routine chest x-ray. COVID labs ordered. IV will be normal saline at open. Glycosylated protein will be done to see if she is a candidate for dexamethasone treatment as an outpatient. - Re-Assessments/Exams Free Text/Narrative Re-Assessment/Exam: 04/02/20 20:33 chest x-ray done portably reveals mild cardiomegaly with slightly tortuous thoracic aorta. Groundglass appearance to both lower lobes of the lung santacruz compatible with viral pneumonitis and COVID-19 illness. No segmental or pneumonia evident. No pneumothorax.White count is 6.02 with auto differential showing 54% neutrophils. Hemoglobin is 12.3 with hematocrit of 37.3. Platelet count normal at 219,000. Hemoglobin a A1c is excellent at 6.80. 04/02/20 20:48PT is 10.9 with an INR of 1.02. D-dimer is mildly elevated 1.13. 04/02/20 20:54 Sodium 137 with potassium 3.6. Chloride 98 with a bicarb of 29. Anion gap is 13.6. BUN is 18 with a creatinine of 1.1. GFR is 49. Glucose 119 with a hemoglobin A1c of 6.80. Calcium 9.0 with a magnesium low at 1.4. Liver function is normal. LDH is 215. Troponin I is less than 0.017. C-reactive protein 0.6. BNP 208. Total protein 7.8 with an albumin fraction slightly low at 3.3. Serum ferritin is pending 04/02/20 21:15 a.m. ferritin returned normal at 32. I discussed the findings with the patient. Her O2 sats are maintained primarily at 94% on room air. She is currently on day 7 or 8 of illness. I am going to place her on Slow-Mag 1 tablet once daily for the next 10 days until she can eat normally again. Placed on dexamethasone 6 mg IV in the ED and then 6 mg twice daily orally breakfast and supper for 5 more days. She will follow-up if condition continues to worsen Departure - Departure Time of Disposition: 21:07 Disposition: Home, Self-Care 01 Condition: Fair Clinical Impression: COVID-19 determined by clinical diagnostic criteria, Hypomagnesemia - Discharge Information *PRESCRIPTION DRUG MONITORING PROGRAM REVIEWED*: Not Applicable *COPY OF PRESCRIPTION DRUG MONITORING REPORT IN PATIENT DOTTIE: Not Applicable Prescriptions: dexAMETHasone [Dexamethasone] 6 mg PO BID #10 tab Magnesium Chloride [Slow-Mag] 71.5 mg PO DAILY #10 tablet. Referrals: Fannie Slaughter, GENERAL MAINTENANCE MECHANIC [Primary Care Provider] - Forms: ED Department Discharge Additional Instructions: Evaluation in the emergency room today in regards to known COVID-19 illness with gradually worsening shortness of breath on minimal exertion. Today you are considered to be on day 7 or 8 of illness. Oxygen saturations in the ED really stayed around 94% at rest. They will of course go down on exertion such as walking. However this is a good level of oxygen for this illness. Lab test otherwise did not show any other significant abnormalities other than a low seru m magnesium level at 1.4 and it should be around 2.0. This is mostly low because you are unable to eat. Suggest plenty of fluids such as Gatorade or Powerade to maintain electrolyte status. This is in addition to water etc. Avoid dairy products and no apple juice or grape juice if you have diarrhea. Treatment will be magnesium supplementation with Slow-Mag 1 tablet once daily for the next 10 days. Inflammation reduction is to be obtained through dexamethasone steroid 6 mg twice daily morning with breakfast and supper for the next 5 days. Initial dose of dexamethasone was given in the ER intravenously tonight. You should start to feel improved with increased energy return of appetite and less cough over the next 36 to 48 hours. Of course return to medical care if your condition fails to improve or symptoms seem to be worsening. You still need to self quarantine for another 6 days. Sepsis Event Note (ED) - Evaluation Sepsis Screening Result: No Definite Risk - Focused Exam Vital Signs: Vital Signs Temp Pulse Resp BP Pulse Ox 04/02/20 19:38 20 167/79 H 96 04/02/20 19:29 36.3 C 66 18 158/80 H 94 L - My Orders Last 24 Hours: My Active Orders 04/02/20 19:49 EKG Documentation Completion [RC] STAT Chest 1V Frontal [CR] Stat 04/02/20 19:50 EKG Documentation Completion [RC] STAT 04/02/20 19:51 URINALYSIS W/MICROSCOPIC [UA W/MICROSCOPIC] [URIN] Stat 04/02/20 20:00 Sodium Chloride 0.9% [Normal Saline] 1,000 ml IV ASDIRECTED - Assessment/Plan Last 24 Hours: My Active Orders 04/02/20 19:49 EKG Documentation Completion [RC] STAT Chest 1V Frontal [CR] Stat 04/02/20 19:50 EKG Documentation Completion [RC] STAT 04/02/20 19:51 URINALYSIS W/MICROSCOPIC [UA W/MICROSCOPIC] [URIN] Stat 04/02/20 20:00 Sodium Chloride 0.9% [Normal Saline] 1,000 ml IV ASDIRECTED
[2020-04-02] MEDS ORDERED: Sodium Chloride 0.9% 1,000 ML IV SCH (20:00)
[2020-04-02 20:28] LABS: HEMOGLOBIN A1C 6.8 % (4.50-6.20)
[2020-04-02] MEDS ORDERED: Dexamethasone 10 MG/ML SDV IVPUSH ONE (21:06)
--- NOTE | 2020-05-01 16:50 | CR ---
PROCEDURE INFORMATION: Exam: XR Chest, 1 View Exam date and time: 04/02/2020 7:48 PM Age: 69 years old Clinical indication: Dyspnea TECHNIQUE: Imaging protocol: XR of the chest Views: 1 view. COMPARISON: DX Chest 2V 11/17/2016 1:27 PM FINDINGS: Lungs: Presume nipple shadow artifact right mid lung. No consolidation. Pleural space: Unremarkable. No pleural effusion. No pneumothorax. Heart/Mediastinum: Unremarkable. No cardiomegaly. Bones/joints: Unremarkable. IMPRESSION: 1. No acute findings. 2. Follow-up repeat frontal view with nipple markers advised to exclude pulmonary nodule in right mid lung Thank you for allowing us to participate in the care of your patient. Dictated and Authenticated by: Amor Schulz MD 05/01/2020 4:41 PM Central Time ([place] & [place]) MARIKA
== END 2020-04-02 21:30 | disposition home or self-care (01) ==
LOC: JD.ED 19:04
DX: U07.1 COVID-19 (principal); E83.42 Hypomagnesemia; I13.0 Hypertensive heart and chronic kidney disease with heart failure and stage 1 through stage 4 chronic kidney disease, or unspecified chronic kidney disease; E11.22 Type 2 diabetes mellitus with diabetic chronic kidney disease; I50.9 Heart failure, unspecified; N18.9 Chronic kidney disease, unspecified; E78.00 Pure hypercholesterolemia, unspecified; I25.2 Old myocardial infarction; J44.9 Chronic obstructive pulmonary disease, unspecified; E66.9 Obesity, unspecified; Z79.82 Long term (current) use of aspirin; Z88.8 Allergy status to other drugs, medicaments and biological substances; Z79.899 Other long term (current) drug therapy; Z68.41 Body mass index [BMI] 40.0-44.9, adult; Z79.84 Long term (current) use of oral hypoglycemic drugs
CPT/HCPCS: 36415; 71045; 80053; 82728; 83036; 83615; 83735; 83880; 84484; 85025; 85379; 85610; 86140; 93005; 96361; 96374; 99285; J1100; J7030; 93010; 99284

== ENCOUNTER 2021-07-06 10:50 | Emergency (ER) | payer MEDICARE, OTHER ==
[2021-07-06] MEDS ORDERED: Sodium Chloride 0.9% 10 ML Syringe FLUSH PRN (11:17)
[2021-07-06] MEDS ORDERED: Diltiazem 50 MG/10 ML SDV IVPUSH ONE (11:18)
--- NOTE | 2021-07-06 11:25 | EDM.PDOC ---
ED HPI GENERAL MEDICAL PROBLEM - General Chief Complaint: Chest Pain Stated Complaint: DIZZINESS,HEAVINESS IN CHEST Time Seen by Provider: 07/06/21 11:12 Source of Information: Reports: Patient, Family History Limitations: Reports: No Limitations - History of Present Illness INITIAL COMMENTS - FREE TEXT/NARRATIVE: The patient presents with palpitations. She had a history of MA X 2 with stents and atrial fibrillation. She was cardioverted out of her A-fib by Dr Patel in October of this year. She has not had problems since then. She is on eliquis. She stared noticing some palpitations on Thursday and it has progressed to where she is feeling it with any activity. She does have some heaviness and shortness of breath at times and she also felt like she was going to pass out a couple of times. She has no fever, chills or cough. She has no abdominal pain, nausea or vomiting. Onset: Gradual Duration: Day(s): (4) Location: Reports: Chest Quality: Reports: Other (heaviness) Severity: Mild Improves with: Reports: None Worsens with: Reports: None Associated Symptoms: Reports: Chest Pain (Heaviness), Shortness of Breath. Denies: Cough, Headaches, Nausea/Vomiting Treatments RIGGING HELPER: Reports: Other (see below) Other Treatments RIGGING HELPER: Jardince, metformin, Eliquis Atorvastatin. Coreg - all home meds due at AM Upper Mid-Anterior Chest Pain Score (Numeric/FACES): 2 - Related Data Allergies Allergy/AdvReac Type Severity Reaction Status Date / Time clopidogrel bisulfate Allergy difficulty Verified 07/06/21 11:07 [From Plavix] breathing, facial swelling, throat swelling Home Meds: Home Meds Multivitamin [One Daily] 1 tab PO DAILY 02/16/15 [History] atorvaSTATin [Lipitor] 80 mg PO DAILY 02/16/15 [History] carvediloL [Coreg] 12.5 mg PO BID 02/16/15 [History] sitaGLIPtin Phos/Metformin HCl [Janumet 50-500 MG] 1 tab PO BID 02/16/15 [History] Aspirin [Halfprin] 81 mg PO DAILY 04/01/18 [History] Losartan/Hydrochlorothiazide [Losartan-HCTZ 100-12.5 MG] 1 tab PO DAILY 04/01/18 [History] Apixaban [Eliquis] 07/06/21 [History] Past Medical History HEENT History: Reports: Allergic Rhinitis, Cataract, Glaucoma, Impaired Vision, Other (See Below) Other HEENT History: wears glasses Cardiovascular History: Reports: Arrhythmia, Heart Failure, High Cholesterol, Hypertension, MA, Stents Other Cardiovascular History: heart disease, varicose veins, ischemia Respiratory History: Reports: Bronchitis, Recurrent, COPD, Sleep Apnea Other Respiratory History: cough Gastrointestinal History: Reports: GERD Genitourinary History: Reports: STD, Other (See Below) Other Genitourinary History: chronic kidney disease CONTACT CENTRE SUPERVISOR History: Reports: Other CONTACT CENTRE SUPERVISOR History: c section (31 yrs ago) Musculoskeletal History: Reports: Arthritis, Osteoporosis, Other (See Below) Other Musculoskeletal History: R elbow pain and swelling, 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, metatarsal fracture, hallux valgus, backache, left foot fracutre, bilateral total knees Neurological History: Reports: Seizure Psychiatric History: Reports: Anxiety, Depression Endocrine/Metabolic History: Reports: Diabetes, Type II, Obesity/BMI 30+, Vitamin D Deficiency Hematologic History: Reports: Anemia, Blood Transfusion(s) Immunologic History: Reports: None Oncologic (Cancer) History: Reports: None Dermatologic History: Reports: None, Other (See Below) Other Dermatologic History: corn and callouses, dermatophytosis - Infectious Disease History Infectious Disease History: Reports: Chicken Pox, Measles, Mumps - Past Surgical History Head Surgeries/Procedures: Reports: None HEENT Surgical History: Reports: None Respiratory Surgical History: Reports: None GI Surgical History: Reports: Colonoscopy Female Surgical History: Reports: Section Male Surgical History: Reports: None Endocrine Surgical History: Reports: None Musculoskeletal Surgical History: Reports: Carpal Tunnel, Knee Replacement Oncologic Surgical History: Reports: None Social & Family History - Family History Cardiac: Reports: Afib, Heart Failure OBGYN: Reports: Endocrine/Metabolic: Reports: Diabetes, type II Oncologic: Reports: Colon, Lung - Caffeine Use Caffeine Use: Reports: Soda - Living Situation & Occupation Living situation: Reports: Occupation: Retired ED ROS GENERAL - Review of Systems Review Of Systems: See Below Constitutional: Reports: No Symptoms HEENT: Reports: No Symptoms Respiratory: Reports: Shortness of Breath Cardiovascular: Reports: Chest Pain, Lightheadedness Endocrine: Reports: No Symptoms GI/Abdominal: Reports: No Symptoms : Reports: No Symptoms Musculoskeletal: Reports: No Symptoms Skin: Reports: No Symptoms Neurological: Reports: No Symptoms ED EXAM, GENERAL - Physical Exam Exam: See Below Exam Limited By: No Limitations General Appearance: Alert, No Apparent Distress Ears: Normal External Exam Nose: Normal Inspection Head: Atraumatic, Normocephalic Neck: Normal Inspection Respiratory/Chest: No Respiratory Distress, Lungs Clear, Normal Breath Sounds Cardiovascular: No Edema, No Murmur, No Rub, Irregularly Irregular GI/Abdominal: Soft, Non-Tender, No Organomegaly Back Exam: Normal Inspection Extremities: Normal Inspection Neurological: Alert, Oriented, No Motor/Sensory Deficits ED CARDIOLOGY PROCEDURES - Cardioversion Indication: Atrial Fibrillation with RVR Patient Counseled: Yes Informed Consent Obtained: Yes Preparation: IV Access, Airway Management Equipment, Supplemental Oxygen, RT in Room, Monitor, Reversal Agents Available Pre-Procedure Sedation: Midazolam, Fentanyl Cardioversion Energy: 100J Sync Mode: Biphasic Successful: Yes Number of Attempts: 1 Patient Condition Post Cardioversion: Improved Post Cardioversion EKG Reviewed: Yes ED PROCEDURAL SEDATION - Pre Procedure Indications: other (syncronized cardioversion) Preparations: procedure explained, consent signed, RT in room, oxygen, continuous pulse oximeter, suction, continuous monitor technician, constant attendance - Physical Exam Airway: normal anatomy Cardiovascular: irregular rythum Respiratory: normal breath sounds Neurological: alert, responsive, NAD Mallampati Classification: 1 (soft palate, anterior/posterior tonsillar pillars, uvula visible) - Procedure Sedation Procedural Sedation Start Date: 07/06/21 Procedural Sedation Start Time: 13:16 Sedation: versed (PO), fentanyl ASA Classification: 2 (Patient with a mild systemic disease) - Intra Procedure Condition during procedure: moderately sedated, vital signs stable, oxygenation stable, maintained airway well, handled secretions adequately Complications: none Reversal: none - Post Procedure Procedural Sedation End Date: 07/06/21 Procedural Sedation End Time: 13:20 Condition after procedure: alert - Discharge Condition Patient returned to pre-procedure baseline: Yes Alert prior to discharge: Yes Ambulatory with assistance: Yes Vital signs normal: Yes Time spent with sedated patient: 20 min #1 Interpretation EKG Date: 07/06/21 Time: 10:59 Rhythm: A-Fib Rate (Beats/Min): 119 [place]: Normal P-Wave: Absent QRS: Normal ST-T: Normal QT: Normal Course - Vital Signs Last Recorded V/S: Last Vital Signs Temp 96.3 F L 07/06/21 10:56 Pulse 84 07/06/21 13:30 Resp 18 07/06/21 13:30 BP 100/64 07/06/21 13:30 Pulse Ox 98 07/06/21 13:25 - Orders/Labs/Meds Orders: Active Orders 24 hr Category Date Time Status Cardiac Monitoring [RC] . DIRECTED Care 07/06/21 11:17 Active EKG Documentation Completion [RC] ASDIRECTED Care 07/06/21 14:50 Active Peripheral IV Care [RC] . DIRECTED Care 07/06/21 11:18 Active Chest 1V Frontal [CR] Stat Exams 07/06/21 11:18 Taken Diltiazem [Cardizem] 100 mg Med 07/06/21 11:30 Active Sodium Chloride 0.9% [Normal Saline AdvBag] 100 ml IV TITRATE Sodium Chloride 0.9% [Saline Flush] Med 07/06/21 11:17 Active 10 ml FLUSH ASDIRECTED PRN Peripheral IV Insertion Adult [OM.PC] Stat Oth 07/06/21 11:17 Ordered EKG 12 Lead [EK] Stat Ther 07/06/21 14:50 Ordered Medication Orders Diltiazem HCl 100 mg/ Sodium (Chloride) 100 mls @ 5 mls/hr IV TITRATE GUY; Protocol Last Titration: 07/06/21 12:15 Dose: 0 mg/hr, 0 mls/hr Documented by: Admin: 07/06/21 11:44 Dose: 5 mg/hr, 5 mls/hr Documented by: MARIO Sodium Chloride (Sodium Chloride 0.9% 10 Ml Syringe) 10 ml FLUSH ASDIRECTED PRN PRN Reason: Keep Vein Open Last Admin: 07/06/21 11:43 Dose: 10 ml Documented by: MARIO Labs: Laboratory Tests 07/06/21 07/06/21 07/06/21 Range/Units 11:01 11:17 11:20 WBC 10.64 H (3.98-10.04) K/mm3 RBC 5.15 (3.98-5.22) M/mm3 Hgb 13.0 D (11.2-15.7) gm/dl Hct 40.1 (34.1-44.9) % MCV 77.9 L D (79.4-94.8) fl MCH 25.2 L (25.6-32.2) pg MCHC 32.4 (32.2-35.5) g/dl RDW Std Deviation 49.2 H (36.4-46.3) fL Plt Count 345 (182-369) K/mm3 MPV 10.9 (9.4-12.3) fl Neut % (Auto) 67.2 (34.0-71.1) % Lymph % (Auto) 22.0 (19.3-51.7) % [place] % (Auto) 9.4 (4.7-12.5) % Eos % (Auto) 0.8 (0.7-5.8) Baso % (Auto) 0.4 (0.1-1.2) % Neut # (Auto) 7.16 H (1.56-6.13) K/mm3 Lymph # (Auto) 2.34 (1.18-3.74) K/mm3 [place] # (Auto) 1.00 H (0.24-0.36) K/mm3 Eos # (Auto) 0.08 (0.04-0.36) K/mm3 Baso # (Auto) 0.04 (0.01-0.08) K/mm3 Sodium 137 (136-145) mEq/L Potassium 3.6 (3.5-5.1) mEq/L Chloride 100 (98-107) mEq/L Carbon Dioxide 26 (21-32) mEq/L Anion Gap 14.6 (5-15) BUN 18 (7-18) mg/dL Creatinine 1.3 H (0.55-1.02) mg/dL Est Cr Clr Drug Dosing 29.52 mL/min Estimated GFR (MDRD) 40 (>60) mL/min BUN/Creatinine Ratio 13.8 L (14-18) Glucose 153 H (70-99) mg/dL Calcium 9.6 (8.5-10.1) mg/dL Total Bilirubin 0.6 (0.2-1.0) mg/dL AST 24 (15-37) U/L ALT 30 (14-59) U/L Alkaline Phosphatase 102 (46-116) U/L Troponin I < 0.017 (0.00-0.056) ng/mL Total Protein 7.7 (6.4-8.2) g/dl Albumin 3.4 (3.4-5.0) g/dl Globulin 4.3 gm/dL Albumin/Globulin Ratio 0.8 L (1-2) SARS-CoV-2 RNA ([place]) Negative (NEGATIVE) Meds: Medications Generic Name Dose Route Start Last Admin Trade Name Mary PRN Reason Stop Dose Admin Diltiazem HCl 100 mg/ Sodium 100 mls @ 5 mls/hr 07/06/21 11:30 07/06/21 12:15 Chloride IV 0 mg/hr TITRATE GUY 0 mls/hr Titration Protocol 5 MG/HR Sodium Chloride 10 ml 07/06/21 11:17 07/06/21 11:43 Sodium Chloride 0.9% 10 Ml Syringe FLUSH 10 ml ASDIRECTED PRN Administration Keep Vein Open Discontinued Medications Generic Name Dose Route Start Last Admin Trade Name Mary PRN Reason Stop Dose Admin Diltiazem HCl 10 mg 07/06/21 11:18 07/06/21 11:41 Diltiazem 50 Mg/10 Ml Sdv IVPUSH 07/06/21 11:19 10 mg ONETIME ONE Administration Fentanyl 100 mcg 07/06/21 12:51 07/06/21 13:14 Fentanyl 100 Mcg/2 Ml Sdv IVPUSH 07/06/21 12:52 100 mcg ONETIME ONE Administration Sodium Chloride 500 mls @ 1,000 mls/hr 07/06/21 12:17 07/06/21 12:36 Normal Saline IV 07/06/21 12:46 Not Given .BOLUS ONE Sodium Chloride Confirm 07/06/21 12:18 07/06/21 12:21 Normal Saline Administered 07/06/21 12:19 999 mls/hr Dose Administration 500 mls @ as directed .ROUTE .STK-MED ONE Sodium Chloride 500 mls @ 999 mls/hr 07/06/21 13:24 07/06/21 13:16 Normal Saline IV 07/06/21 13:54 999 mls/hr ONETIME ONE Administration Midazolam HCl 2 mg 07/06/21 12:50 07/06/21 13:13 Midazolam 1 Mg/Ml 2 Ml Sdv IVPUSH 07/06/21 12:51 2 mg ONETIME ONE Administration - Re-Assessments/Exams Free Text/Narrative Re-Assessment/Exam: 07/06/21 11:28 I ordered an IV saline lock, EKG, CXR, labs, cardizem bolus of 10mg IV and then a drip at 5mg/hr. 07/06/21 13:53 Her EKG shows atrial fibrillation with RVR. There are no acute changes. Her WBC is elevated at 10.69. Her creatinine is elevated at 1.3. Her glucose is elevated at 153. Her troponin is negative. She is COVID negative. Her heart rate did go down into the 80s and 90s. Her BP did go down to 88 sy stolic. I had my nurse stop the cardizem drip and gave her a 500ml bolus. I called [facility] in [place] and talked with the coal shoveler electronics tester and he recommended synchronized cardioversion only if the patient has been taking her eliquis and she has. I obtained consent and gave her versed 2mg IV and fentanyl 100mcg IV. I then synchronize cardioverted her at 100J and she converted. 07/06/21 14:53 She is doing good now. Her BP is a little low. I will give her a little more time and the discharge her home. Departure - Departure Time of Disposition: 14:55 Disposition: Home, Self-Care 01 Condition: Good Clinical Impression: Atrial fibrillation with RVR Instructions: Nonspecific Chest Pain, Adult, [id number], Moderate Conscious Sedation, Adult, Care After, Angina, [id number] Referrals: Fannie Slaughter, SIGNAL OPERATOR LINGUIST [Primary Care Provider] - 1 Week Forms: ED Department Discharge Additional Instructions: Keep taking your medications as prescribed. Follow up with Fannie and your cardiology team. Please return if you are worse. Sepsis Event Note (ED) - Evaluation Sepsis Screening Result: No Definite Risk - Focused Exam Vital Signs: Vital Signs Temp Pulse Resp BP Pulse Ox Pulse Ox 07/06/21 13:30 84 18 100/64 07/06/21 13:25 71 16 93/59 L 98 07/06/21 13:15 89 15 87/67 L 98 07/06/21 13:12 106 H 18 121/69 98 07/06/21 12:45 95 18 111/67 98 07/06/21 12:15 89 88/62 L 07/06/21 12:00 18 104/59 L 93 L 07/06/21 10:56 96.3 F L 116 H 21 H 130/85 97 - My Orders Last 24 Hours: My Active Orders 07/06/21 11:17 Cardiac Monitoring [RC] . DIRECTED Sodium Chloride 0.9% [Saline Flush] 10 ml FLUSH ASDIRECTED PRN Peripheral IV Insertion Adult [OM.PC] Stat 07/06/21 11:18 Peripheral IV Care [RC] . DIRECTED Chest 1V Frontal [CR] Stat 07/06/21 11:30 Diltiazem [Cardizem] 100 mg Sodium Chloride 0.9% [Normal Saline AdvBag] 100 ml IV TITRATE 07/06/21 14:50 EKG Documentation Completion [RC] ASDIRECTED EKG 12 Lead [EK] Stat - Assessment/Plan Last 24 Hours: My Active Orders 07/06/21 11:17 Cardiac Monitoring [RC] . DIRECTED Sodium Chloride 0.9% [Saline Flush] 10 ml FLUSH ASDIRECTED PRN Peripheral IV Insertion Adult [OM.PC] Stat 07/06/21 11:18 Peripheral IV Care [RC] . DIRECTED Chest 1V Frontal [CR] Stat 07/06/21 11:30 Diltiazem [Cardizem] 100 mg Sodium Chloride 0.9% [Normal Saline AdvBag] 100 ml IV TITRATE 07/06/21 14:50 EKG Documentation Completion [RC] ASDIRECTED EKG 12 Lead [EK] Stat
[2021-07-06] MEDS ORDERED: Diltiazem 100 MG in Sodium Chloride 0.9% 100 ML IV SCH (11:30)
[2021-07-06] MEDS ORDERED: Sodium Chloride 0.9% 500 ML IV ONE ×2 (12:17→13:24)
[2021-07-06] MEDS ORDERED: Sodium Chloride 0.9% 500 ML ONE (12:18)
[2021-07-06] MEDS ORDERED: Midazolam 1 MG/ML 2 ML SDV IVPUSH ONE (12:50)
[2021-07-06] MEDS ORDERED: fentaNYL 100 MCG/2 ML SDV IVPUSH ONE (12:51)
[2021-07-06 14:56] VITALS: BP 90/54; PULSE 70
--- NOTE | 2021-07-08 08:59 | CR ---
EXAM: XR CHEST 1 VIEW LOCATION: [facility] [place] DATE/TIME: 07/06/2021 11:58 AM INDICATION: Chest pain COMPARISON: 04/02/2020 IMPRESSION: The cardiomediastinal silhouette and pulmonary vascularity are normal. No focal consolidation, pneumothorax nor pleural effusion. SIGNED BY: Tobias Lopez MD 07/06/2021 4:23 PM [facility]
== END 2021-07-06 15:00 | disposition home or self-care (01) ==
LOC: JD.ED 10:50
DX: I48.91 Unspecified atrial fibrillation (principal); I25.2 Old myocardial infarction; I11.0 Hypertensive heart disease with heart failure; I50.9 Heart failure, unspecified; E78.00 Pure hypercholesterolemia, unspecified; J44.9 Chronic obstructive pulmonary disease, unspecified; E11.9 Type 2 diabetes mellitus without complications; E66.9 Obesity, unspecified; Z68.41 Body mass index [BMI] 40.0-44.9, adult; Z95.5 Presence of coronary angioplasty implant and graft; Z88.8 Allergy status to other drugs, medicaments and biological substances; Z79.82 Long term (current) use of aspirin; Z79.01 Long term (current) use of anticoagulants; Z79.899 Other long term (current) drug therapy; Z20.822 Contact with and (suspected) exposure to COVID-19
CPT/HCPCS: 36415; 71045; 80053; 84484; 85025; 92960; 93005; 96365; 99285; J2250; J3010; J3490; J7030; J7040; U0002

== ENCOUNTER 2022-11-18 19:45 | Inpatient (IN) | payer MEDICARE, BC ==
[2022-11-18] MEDS ORDERED: Sodium Chloride 0.9% 1,000 ML IV SCH (20:30)
[2022-11-18 20:34] LABS: HEMATOCRIT 39.9 % (34.1-44.9); HEMOGLOBIN 13.4 gm/dl (11.2-15.7); MEAN CORPUSCULAR HEMOGLOBIN 26.3 pg (25.6-32.2); MEAN CORPUSCULAR HGB CONC 33.6 g/dl (32.2-35.5); MEAN CORPUSCULAR VOLUME 78.4 fl (79.4-94.8); MEAN PLATELET VOLUME 10.4 fl (9.4-12.3); PLATELET COUNT,PLT 253 K/mm3 (182-369); RED BLOOD CELL COUNT 5.09 M/mm3 (3.98-5.22)
[2022-11-18 20:44] LABS: A/G RATIO 0.6 (1-2); ANION GAP 16.3 (5-15); BILIRUBIN TOTAL 0.9 mg/dL (0.2-1.0); BUN/CREATININE RATIO 12.9 (14-18); CREATININE 1.4 mg/dL (0.55-1.02); EST CRCL DRUG DOSING (CG) 28.31 mL/min; POTASSIUM,K 3.3 mEq/L (3.5-5.1)
[2022-11-18 20:50] LABS: C-REACTIVE PROTEIN 6.2 mg/dL (<1.0); MAGNESIUM 1.7 mg/dL (1.8-2.4)
[2022-11-18 21:11] LABS: BAND PERCENT MAN 2 % (0-10); BASOPHILS PERCENT MAN 1 (0.1-1.2); EOSINOPHILS PERCENT MAN 0 % (0.7-5.8); LYMPHOCYTES % ATYPICAL MANUAL 0 %; LYMPHOCYTES PERCENT MAN 6 % (20-40); MONOCYTES PERCENT MAN 3 % (2-10)
[2022-11-18 21:13] LABS: ANISOCYTOSIS 1+ SLIGHT; MICROCYTOSIS 1+ SLIGHT; PLATELET COUNT ESTIMATE ADEQUATE
[2022-11-18 21:15] LABS: APPEARANCE,URINE CLEAR (Clear); BILIRUBIN,URINE NEGATIVE (Negative); COLOR,URINE YELLOW (Yellow); GLUCOSE,URINE 2+ (Negative); KETONES,URINE NEGATIVE (Negative); LEUKOCYTE ESTERASE,URINE NEGATIVE (Negative); NITRITE,URINE NEGATIVE (Negative); OCCULT BLOOD,URINE TRACE-INTACT (Negative); PROTEIN,URINE 1+ (Negative); UROBILINOGEN,URINE 0.2 (0.2-1.0)
[2022-11-18 21:23] LABS: CORONAVIRUS COVID-19 NAA NEGATIVE (NEGATIVE); INFLUENZA A NAA NEGATIVE (NEGATIVE); RESPIRATORY SYNCYTIAL VIR NAA NEGATIVE (NEGATIVE)
[2022-11-18 21:33] LABS: BASE EXCESS ARTERIAL -2.3 (-2-2.0); BICARBONATE,ARTERIAL 21.4 meq/L (22.0-26.0); O2 SATURATION ARTERIAL 92.6 % (96.0-97.0); PCO2 ARTERIAL 35.3 mmHg (35.0-45.0)
[2022-11-18 21:33] LABS: BACTERIA,URINE FEW /hpf (FEW); MUCUS,URINE NOT SEEN /hpf (FEW); RBC,URINE 0-5 /hpf (0-5); RENAL EPITHELIAL CELLS,URINE 0-5 /hpf (0-5); SQUAMOUS EPITHELIAL CELLS,UR 0-5 /hpf (0-5); WBC,URINE 0-5 /hpf (0-5)
[2022-11-18] MEDS ORDERED: Apixaban 5 MG Tab PO ONE (23:52)
[2022-11-18] MEDS ORDERED: Furosemide 40 MG/4 ML VIAL IVPUSH ONE (23:53)
[2022-11-19] MEDS ORDERED: Acetaminophen/HYDROcodone 325-5 MG Tab PO ONE (04:45)
[2022-11-19] MEDS ORDERED: Docusate Sodium 100 MG Cap PO PRN (08:41)
[2022-11-19] MEDS ORDERED: Psyllium Husk Powder Sugar Free 5.85 GM Packet PO PRN (08:41)
[2022-11-19] MEDS ORDERED: Ondansetron 4 MG/2 ML SDV IVPUSH PRN (08:41)
[2022-11-19] MEDS ORDERED: hydrALAZINE 20 MG/ML SDV IVPUSH PRN (08:41)
[2022-11-19] MEDS ORDERED: Acetaminophen 325 MG Tab PO PRN (08:41)
[2022-11-19 09:44] LABS: BASOPHILS ABSOLUTE AUTO 0.02 K/mm3 (0.01-0.08); BASOPHILS PERCENT AUTO 0.2 % (0.1-1.2); EOSINOPHILS PERCENT AUTO 0 (0.7-5.8); HEMATOCRIT 38.1 % (34.1-44.9); HEMOGLOBIN 12.6 gm/dl (11.2-15.7); IMMATURE GRAN ABSOLUTE AUTO 0.02 K/mm3 (0.00-0.10); IMMATURE GRAN PERCENT AUTO 0.2 % (<=1.0); LYMPHOCYTES ABSOLUTE AUTO 0.74 K/mm3 (1.18-3.74); LYMPHOCYTES PERCENT AUTO 5.9 % (19.3-51.7); MEAN CORPUSCULAR HEMOGLOBIN 26.5 pg (25.6-32.2); MEAN CORPUSCULAR HGB CONC 33.1 g/dl (32.2-35.5); MEAN PLATELET VOLUME 10.2 fl (9.4-12.3); MONOCYTES ABSOLUTE AUTO 0.37 K/mm3 (0.24-0.36); MONOCYTES PERCENT AUTO 2.9 % (4.7-12.5); NEUTROPHILS ABSOLUTE AUTO 11.46 K/mm3 (1.56-6.13); NEUTROPHILS PERCENT AUTO 90.8 % (34.0-71.1); PLATELET COUNT,PLT 229 K/mm3 (182-369); RED BLOOD CELL COUNT 4.76 M/mm3 (3.98-5.22); WHITE BLOOD CELL COUNT,WBC 12.61 K/mm3 (3.98-10.04)
[2022-11-19] MEDS ORDERED: Piperacillin/Tazobactam 4.5 GM in Sodium Chloride 0.9% 100 ML IV ONE (10:00)
[2022-11-19] MEDS: Multivitamin Tab PO SCH (10:35)
[2022-11-19] MEDS: Insulin Lispro 100 Unit/ML 3 ML KwikPen SUBCUT SCH ×5 (10:35→21:01)
[2022-11-19] MEDS: Acetaminophen/oxyCODONE 325-5 MG Tab PO PRN (10:44)
[2022-11-19 10:47] LABS: ANION GAP 14.3 (5-15); BUN/CREATININE RATIO 12.9 (14-18); CALCIUM 8.6 mg/dL (8.5-10.1); CREATININE 1.4 mg/dL (0.55-1.02); EST CRCL DRUG DOSING (CG) 28.31 mL/min; POTASSIUM,K 3.3 mEq/L (3.5-5.1)
[2022-11-19] MEDS: Carvedilol 12.5 MG Tab PO SCH ×2 (11:45→20:53)
[2022-11-19] MEDS: Pantoprazole 40 MG Tab.CR PO SCH (11:45)
[2022-11-19] MEDS: Apixaban 5 MG Tab PO SCH ×2 (11:45→20:53)
[2022-11-19] MEDS: HYDROmorphone 0.5 MG/0.5 ML Syringe IVPUSH PRN (11:47)
[2022-11-19] MEDS ORDERED: Iopamidol 612 MG/ML 100 ML Bottle IVPUSH ONE ×2 (12:22)
[2022-11-19 12:39] LABS: SLIDE REVIEW ABNORMAL SMEAR
[2022-11-19] MEDS ORDERED: VANCOmycin 1.25 GM/250 ML 1.25 GM in Premix Bag 1 BAG IV SCH (13:00)
[2022-11-19] MEDS ORDERED: Sodium Chloride 0.9% 1,000 ML IV SCH ×3 (15:15→19:15)
[2022-11-19] MEDS: Piperacillin/Tazobactam 4.5 GM in Sodium Chloride 0.9% 100 ML IV SCH (17:19)
[2022-11-19] MEDS: Midodrine 5 MG Tab PO SCH (17:22)
[2022-11-19] MEDS: Norepinephrine 4 MG in Dextrose 5% in Water 246 ML IV SCH ×2 (18:40)
[2022-11-19 20:42] LABS: BORDETELLA PARAPERT IS1001 Not Detected (Not Detected)
[2022-11-19] MEDS: Potassium Chloride 20 MEQ Tab.ER PO SCH (20:53)
[2022-11-19] MEDS: atorvaSTATin 40 MG Tab PO SCH (20:54)
[2022-11-19] MEDS ORDERED: Dextrose 5% in Water 250 ML ONE (23:43)
[2022-11-20] MEDS: Norepinephrine 4 MG in Dextrose 5% in Water 246 ML IV SCH ×4 (01:26→23:20)
[2022-11-20] MEDS: Piperacillin/Tazobactam 4.5 GM in Sodium Chloride 0.9% 100 ML IV SCH ×3 (02:17→17:59)
[2022-11-20 05:56] LABS: ANION GAP 15.3 (5-15); BUN/CREATININE RATIO 16.7 (14-18); CALCIUM 7.8 mg/dL (8.5-10.1); CREATININE 1.2 mg/dL (0.55-1.02); EST CRCL DRUG DOSING (CG) 33.02 mL/min; POTASSIUM,K 3.3 mEq/L (3.5-5.1)
[2022-11-20 06:10] LABS: BASOPHILS ABSOLUTE AUTO 0.04 K/mm3 (0.01-0.08); BASOPHILS PERCENT AUTO 0.2 % (0.1-1.2); EOSINOPHILS ABSOLUTE AUTO 0.02 K/mm3 (0.04-0.36); EOSINOPHILS PERCENT AUTO 0.1 (0.7-5.8); HEMATOCRIT 33.9 % (34.1-44.9); HEMOGLOBIN 10.9 gm/dl (11.2-15.7); IMMATURE GRAN ABSOLUTE AUTO 0.06 K/mm3 (0.00-0.10); IMMATURE GRAN PERCENT AUTO 0.3 % (<=1.0); LYMPHOCYTES ABSOLUTE AUTO 1.17 K/mm3 (1.18-3.74); LYMPHOCYTES PERCENT AUTO 6.2 % (19.3-51.7); MEAN CORPUSCULAR HGB CONC 32.2 g/dl (32.2-35.5); MEAN CORPUSCULAR VOLUME 80.9 fl (79.4-94.8); MEAN PLATELET VOLUME 11.5 fl (9.4-12.3); MONOCYTES ABSOLUTE AUTO 0.83 K/mm3 (0.24-0.36); MONOCYTES PERCENT AUTO 4.4 % (4.7-12.5); NEUTROPHILS PERCENT AUTO 88.8 % (34.0-71.1); PLATELET COUNT,PLT 195 K/mm3 (182-369); RED BLOOD CELL COUNT 4.19 M/mm3 (3.98-5.22); WHITE BLOOD CELL COUNT,WBC 18.82 K/mm3 (3.98-10.04)
[2022-11-20] MEDS: Acetaminophen/oxyCODONE 325-5 MG Tab PO PRN ×2 (06:23→11:14)
[2022-11-20 06:51] LABS: SLIDE REVIEW ABNORMAL SMEAR
[2022-11-20] MEDS: Midodrine 5 MG Tab PO SCH (08:06)
[2022-11-20] MEDS: Insulin Lispro 100 Unit/ML 3 ML KwikPen SUBCUT SCH ×8 (08:07→22:05)
[2022-11-20] MEDS ORDERED: Sodium Chloride 0.9% 1,000 ML IV SCH ×2 (08:45→15:30)
[2022-11-20] MEDS: Carvedilol 12.5 MG Tab PO SCH ×2 (09:42→21:43)
[2022-11-20] MEDS: Pantoprazole 40 MG Tab.CR PO SCH (10:04)
[2022-11-20] MEDS: Potassium Chloride 20 MEQ Tab.ER PO SCH ×2 (10:04→21:43)
[2022-11-20] MEDS: Apixaban 5 MG Tab PO SCH ×2 (10:04→21:43)
[2022-11-20] MEDS: Multivitamin Tab PO SCH (10:05)
[2022-11-20] MEDS: Acetaminophen 325 MG Tab PO SCH ×2 (11:58→18:04)
[2022-11-20] MEDS: atorvaSTATin 40 MG Tab PO SCH (21:44)
[2022-11-20] MEDS: Sodium Chloride 0.9% 1,000 ML IV SCH (22:05)
[2022-11-21] MEDS: Acetaminophen 325 MG Tab PO SCH ×4 (00:29→17:03)
[2022-11-21] MEDS: Piperacillin/Tazobactam 4.5 GM in Sodium Chloride 0.9% 100 ML IV SCH ×3 (01:15→17:01)
[2022-11-21] MEDS: Insulin Lispro 100 Unit/ML 3 ML KwikPen SUBCUT SCH ×8 (06:32→20:26)
[2022-11-21 06:36] LABS: BUN/CREATININE RATIO 20.9 (14-18); CALCIUM 7.7 mg/dL (8.5-10.1); CREATININE 1.1 mg/dL (0.55-1.02); EST CRCL DRUG DOSING (CG) 36.02 mL/min
[2022-11-21 07:00] LABS: BASOPHILS ABSOLUTE AUTO 0.02 K/mm3 (0.01-0.08); BASOPHILS PERCENT AUTO 0.1 % (0.1-1.2); EOSINOPHILS ABSOLUTE AUTO 0.15 K/mm3 (0.04-0.36); HEMATOCRIT 31.9 % (34.1-44.9); HEMOGLOBIN 10.4 gm/dl (11.2-15.7); IMMATURE GRAN ABSOLUTE AUTO 0.05 K/mm3 (0.00-0.10); IMMATURE GRAN PERCENT AUTO 0.3 % (<=1.0); LYMPHOCYTES ABSOLUTE AUTO 1.38 K/mm3 (1.18-3.74); LYMPHOCYTES PERCENT AUTO 8.9 % (19.3-51.7); MEAN CORPUSCULAR HEMOGLOBIN 26.2 pg (25.6-32.2); MEAN CORPUSCULAR HGB CONC 32.6 g/dl (32.2-35.5); MEAN CORPUSCULAR VOLUME 80.4 fl (79.4-94.8); MEAN PLATELET VOLUME 11.9 fl (9.4-12.3); MONOCYTES ABSOLUTE AUTO 1.16 K/mm3 (0.24-0.36); MONOCYTES PERCENT AUTO 7.5 % (4.7-12.5); NEUTROPHILS ABSOLUTE AUTO 12.71 K/mm3 (1.56-6.13); NEUTROPHILS PERCENT AUTO 82.2 % (34.0-71.1); PLATELET COUNT,PLT 172 K/mm3 (182-369); RED BLOOD CELL COUNT 3.97 M/mm3 (3.98-5.22); WHITE BLOOD CELL COUNT,WBC 15.47 K/mm3 (3.98-10.04)
[2022-11-21] MEDS: Multivitamin Tab PO SCH (08:00)
[2022-11-21] MEDS: Potassium Chloride 20 MEQ Tab.ER PO SCH ×2 (08:00→20:17)
[2022-11-21] MEDS: Apixaban 5 MG Tab PO SCH ×2 (08:00→20:17)
[2022-11-21] MEDS: Pantoprazole 40 MG Tab.CR PO SCH (08:00)
[2022-11-21] MEDS ORDERED: Acetaminophen 325 MG Tab PO SCH (09:00)
[2022-11-21] MEDS: Carvedilol 12.5 MG Tab PO SCH ×2 (09:20→20:17)
[2022-11-21 09:59] LABS: SLIDE REVIEW NORMAL SMEAR
[2022-11-21] MEDS: Sodium Chloride 0.9% 1,000 ML IV SCH (10:13)
[2022-11-21] MEDS: Acetaminophen/oxyCODONE 325-5 MG Tab PO PRN ×2 (15:41→22:01)
[2022-11-21] MEDS: atorvaSTATin 40 MG Tab PO SCH (20:17)
[2022-11-22] MEDS: Acetaminophen 325 MG Tab PO SCH ×4 (00:04→17:36)
[2022-11-22] MEDS: Piperacillin/Tazobactam 4.5 GM in Sodium Chloride 0.9% 100 ML IV SCH ×3 (02:19→17:37)
[2022-11-22 05:29] LABS: BASOPHILS ABSOLUTE AUTO 0.02 K/mm3 (0.01-0.08); BASOPHILS PERCENT AUTO 0.1 % (0.1-1.2); EOSINOPHILS ABSOLUTE AUTO 0.16 K/mm3 (0.04-0.36); EOSINOPHILS PERCENT AUTO 1.1 (0.7-5.8); HEMATOCRIT 32.3 % (34.1-44.9); HEMOGLOBIN 10.7 gm/dl (11.2-15.7); IMMATURE GRAN ABSOLUTE AUTO 0.06 K/mm3 (0.00-0.10); IMMATURE GRAN PERCENT AUTO 0.4 % (<=1.0); LYMPHOCYTES ABSOLUTE AUTO 1.73 K/mm3 (1.18-3.74); LYMPHOCYTES PERCENT AUTO 12.3 % (19.3-51.7); MEAN CORPUSCULAR HEMOGLOBIN 26.4 pg (25.6-32.2); MEAN CORPUSCULAR HGB CONC 33.1 g/dl (32.2-35.5); MEAN CORPUSCULAR VOLUME 79.6 fl (79.4-94.8); MEAN PLATELET VOLUME 10.7 fl (9.4-12.3); MONOCYTES ABSOLUTE AUTO 1.15 K/mm3 (0.24-0.36); MONOCYTES PERCENT AUTO 8.2 % (4.7-12.5); NEUTROPHILS ABSOLUTE AUTO 10.94 K/mm3 (1.56-6.13); NEUTROPHILS PERCENT AUTO 77.9 % (34.0-71.1); PLATELET COUNT,PLT 169 K/mm3 (182-369); RED BLOOD CELL COUNT 4.06 M/mm3 (3.98-5.22); WHITE BLOOD CELL COUNT,WBC 14.06 K/mm3 (3.98-10.04)
[2022-11-22] MEDS: Insulin Lispro 100 Unit/ML 3 ML KwikPen SUBCUT SCH ×7 (06:34→21:53)
[2022-11-22 06:42] LABS: ANION GAP 14.5 (5-15); CALCIUM 7.9 mg/dL (8.5-10.1); EST CRCL DRUG DOSING (CG) 39.63 mL/min; POTASSIUM,K 4.5 mEq/L (3.5-5.1)
[2022-11-22] MEDS: Carvedilol 12.5 MG Tab PO SCH ×2 (08:29→20:54)
[2022-11-22] MEDS: Apixaban 5 MG Tab PO SCH ×2 (08:30→20:54)
[2022-11-22] MEDS: Potassium Chloride 20 MEQ Tab.ER PO SCH ×2 (08:30→20:54)
[2022-11-22] MEDS: Multivitamin Tab PO SCH (08:31)
[2022-11-22] MEDS: Pantoprazole 40 MG Tab.CR PO SCH (08:31)
[2022-11-22] MEDS: Acetaminophen/oxyCODONE 325-5 MG Tab PO PRN ×2 (16:46→22:26)
[2022-11-22] MEDS: HYDROmorphone 0.5 MG/0.5 ML Syringe IVPUSH PRN (17:08)
[2022-11-22] MEDS ORDERED: LORazepam 2 MG/ML SDV IVPUSH PRN (17:28)
[2022-11-22] MEDS: atorvaSTATin 40 MG Tab PO SCH (20:56)
[2022-11-23] MEDS: Acetaminophen 325 MG Tab PO SCH ×4 (00:52→18:15)
[2022-11-23] MEDS: Piperacillin/Tazobactam 4.5 GM in Sodium Chloride 0.9% 100 ML IV SCH ×2 (02:19→10:43)
[2022-11-23 05:33] LABS: BASOPHILS ABSOLUTE AUTO 0.03 K/mm3 (0.01-0.08); BASOPHILS PERCENT AUTO 0.2 % (0.1-1.2); EOSINOPHILS ABSOLUTE AUTO 0.08 K/mm3 (0.04-0.36); EOSINOPHILS PERCENT AUTO 0.5 (0.7-5.8); HEMATOCRIT 33.3 % (34.1-44.9); HEMOGLOBIN 10.9 gm/dl (11.2-15.7); IMMATURE GRAN ABSOLUTE AUTO 0.08 K/mm3 (0.00-0.10); IMMATURE GRAN PERCENT AUTO 0.5 % (<=1.0); LYMPHOCYTES ABSOLUTE AUTO 1.85 K/mm3 (1.18-3.74); LYMPHOCYTES PERCENT AUTO 11.2 % (19.3-51.7); MEAN CORPUSCULAR HEMOGLOBIN 25.9 pg (25.6-32.2); MEAN CORPUSCULAR HGB CONC 32.7 g/dl (32.2-35.5); MEAN CORPUSCULAR VOLUME 79.1 fl (79.4-94.8); MEAN PLATELET VOLUME 10.9 fl (9.4-12.3); MONOCYTES ABSOLUTE AUTO 1.33 K/mm3 (0.24-0.36); MONOCYTES PERCENT AUTO 8.1 % (4.7-12.5); NEUTROPHILS ABSOLUTE AUTO 13.14 K/mm3 (1.56-6.13); NEUTROPHILS PERCENT AUTO 79.5 % (34.0-71.1); PLATELET COUNT,PLT 149 K/mm3 (182-369); RED BLOOD CELL COUNT 4.21 M/mm3 (3.98-5.22); WHITE BLOOD CELL COUNT,WBC 16.51 K/mm3 (3.98-10.04)
[2022-11-23 05:53] LABS: BUN/CREATININE RATIO 19.1 (14-18); CALCIUM 8.2 mg/dL (8.5-10.1); CREATININE 1.1 mg/dL (0.55-1.02); EST CRCL DRUG DOSING (CG) 36.02 mL/min
[2022-11-23 06:19] LABS: SLIDE REVIEW ABNORMAL SMEAR
[2022-11-23] MEDS: Insulin Lispro 100 Unit/ML 3 ML KwikPen SUBCUT SCH ×7 (06:41→21:03)
[2022-11-23] MEDS: Carvedilol 12.5 MG Tab PO SCH ×2 (08:12→21:06)
[2022-11-23] MEDS: Apixaban 5 MG Tab PO SCH ×2 (08:14→21:05)
[2022-11-23] MEDS: Pantoprazole 40 MG Tab.CR PO SCH (08:14)
[2022-11-23] MEDS: Multivitamin Tab PO SCH (08:14)
[2022-11-23] MEDS: Potassium Chloride 20 MEQ Tab.ER PO SCH (08:15)
[2022-11-23] MEDS: cefTRIAXone 2 GM in Sodium Chloride 0.9% 100 ML IV SCH (18:15)
[2022-11-23] MEDS: atorvaSTATin 40 MG Tab PO SCH (21:04)
[2022-11-23] MEDS: Acetaminophen/oxyCODONE 325-5 MG Tab PO PRN (21:05)
[2022-11-24] MEDS: Acetaminophen 325 MG Tab PO SCH ×7 (00:39→23:20)
[2022-11-24] MEDS: HYDROmorphone 0.5 MG/0.5 ML Syringe IVPUSH PRN (02:36)
[2022-11-24 05:27] LABS: BASOPHILS ABSOLUTE AUTO 0.03 K/mm3 (0.01-0.08); BASOPHILS PERCENT AUTO 0.2 % (0.1-1.2); EOSINOPHILS ABSOLUTE AUTO 0.12 K/mm3 (0.04-0.36); EOSINOPHILS PERCENT AUTO 0.8 (0.7-5.8); HEMATOCRIT 32.6 % (34.1-44.9); HEMOGLOBIN 10.8 gm/dl (11.2-15.7); IMMATURE GRAN ABSOLUTE AUTO 0.11 K/mm3 (0.00-0.10); IMMATURE GRAN PERCENT AUTO 0.8 % (<=1.0); LYMPHOCYTES ABSOLUTE AUTO 1.45 K/mm3 (1.18-3.74); MEAN CORPUSCULAR HGB CONC 33.1 g/dl (32.2-35.5); MEAN CORPUSCULAR VOLUME 78.6 fl (79.4-94.8); MEAN PLATELET VOLUME 11.3 fl (9.4-12.3); MONOCYTES ABSOLUTE AUTO 0.96 K/mm3 (0.24-0.36); MONOCYTES PERCENT AUTO 6.6 % (4.7-12.5); NEUTROPHILS ABSOLUTE AUTO 11.78 K/mm3 (1.56-6.13); NEUTROPHILS PERCENT AUTO 81.6 % (34.0-71.1); PLATELET COUNT,PLT 166 K/mm3 (182-369); RED BLOOD CELL COUNT 4.15 M/mm3 (3.98-5.22); WHITE BLOOD CELL COUNT,WBC 14.45 K/mm3 (3.98-10.04)
[2022-11-24 05:51] LABS: ANION GAP 13.7 (5-15); BUN/CREATININE RATIO 17.5 (14-18); CALCIUM 8.5 mg/dL (8.5-10.1); CREATININE 1.2 mg/dL (0.55-1.02); EST CRCL DRUG DOSING (CG) 33.02 mL/min; POTASSIUM,K 4.7 mEq/L (3.5-5.1)
[2022-11-24 06:31] LABS: SLIDE REVIEW ABNORMAL SMEAR
[2022-11-24] MEDS: Insulin Lispro 100 Unit/ML 3 ML KwikPen SUBCUT SCH ×7 (06:42→20:01)
[2022-11-24] MEDS: Pantoprazole 40 MG Tab.CR PO SCH (09:20)
[2022-11-24] MEDS: Apixaban 5 MG Tab PO SCH ×2 (09:20→20:00)
[2022-11-24] MEDS: Multivitamin Tab PO SCH (09:20)
[2022-11-24] MEDS: Carvedilol 12.5 MG Tab PO SCH ×2 (09:20→20:00)
[2022-11-24] MEDS: cefTRIAXone 2 GM in Sodium Chloride 0.9% 100 ML IV SCH (16:55)
[2022-11-24] MEDS: atorvaSTATin 40 MG Tab PO SCH (20:00)
[2022-11-25 06:13] LABS: A/G RATIO 0.4 (1-2); ALBUMIN 1.8 g/dl (3.4-5.0); ANION GAP 15.3 (5-15); BILIRUBIN TOTAL 2.3 mg/dL (0.2-1.0); BUN/CREATININE RATIO 16.7 (14-18); CALCIUM 8.5 mg/dL (8.5-10.1); CREATININE 1.2 mg/dL (0.55-1.02); EST CRCL DRUG DOSING (CG) 33.02 mL/min; POTASSIUM,K 4.3 mEq/L (3.5-5.1); PROTEIN TOTAL,TP 6.5 g/dl (6.4-8.2)
[2022-11-25 06:15] LABS: BASOPHILS ABSOLUTE AUTO 0.03 K/mm3 (0.01-0.08); BASOPHILS PERCENT AUTO 0.2 % (0.1-1.2); EOSINOPHILS ABSOLUTE AUTO 0.18 K/mm3 (0.04-0.36); HEMATOCRIT 32.9 % (34.1-44.9); IMMATURE GRAN ABSOLUTE AUTO 0.16 K/mm3 (0.00-0.10); IMMATURE GRAN PERCENT AUTO 0.9 % (<=1.0); LYMPHOCYTES ABSOLUTE AUTO 2.24 K/mm3 (1.18-3.74); LYMPHOCYTES PERCENT AUTO 12.7 % (19.3-51.7); MEAN CORPUSCULAR HEMOGLOBIN 26.2 pg (25.6-32.2); MEAN CORPUSCULAR HGB CONC 33.4 g/dl (32.2-35.5); MEAN CORPUSCULAR VOLUME 78.3 fl (79.4-94.8); MEAN PLATELET VOLUME 11.4 fl (9.4-12.3); MONOCYTES PERCENT AUTO 7.4 % (4.7-12.5); NEUTROPHILS ABSOLUTE AUTO 13.74 K/mm3 (1.56-6.13); NEUTROPHILS PERCENT AUTO 77.8 % (34.0-71.1); PLATELET COUNT,PLT 190 K/mm3 (182-369); WHITE BLOOD CELL COUNT,WBC 17.65 K/mm3 (3.98-10.04)
[2022-11-25] MEDS: Insulin Lispro 100 Unit/ML 3 ML KwikPen SUBCUT SCH ×4 (06:32→11:01)
[2022-11-25] MEDS: Acetaminophen 325 MG Tab PO SCH ×2 (06:33→12:56)
[2022-11-25] MEDS: Apixaban 5 MG Tab PO SCH (08:06)
[2022-11-25] MEDS: Carvedilol 12.5 MG Tab PO SCH (08:06)
[2022-11-25] MEDS: Pantoprazole 40 MG Tab.CR PO SCH (08:06)
[2022-11-25] MEDS: Multivitamin Tab PO SCH (08:06)
[2022-11-25 10:14] LABS: SLIDE REVIEW ABNORMAL SMEAR
[2022-11-25 13:23] VITALS: BP 120/77; PULSE 78
== END 2022-11-25 14:38 | disposition home or self-care (01) | DRG 291 ==
LOC: JD.ED 19:45 → JD.ICU 11-19 06:48 → UNDOADMIN 11-19 07:21 → JD.ICU 11-19 07:21 → UNDODISIN 11-25 14:38
PROVIDERS: ADMIT Internal Medicine; ATTEND Internal Medicine
PROC: 3E033XZ Introduction of Vasopressor into Peripheral Vein, Percutaneous Approach (ICD-10-PCS; principal; 2022-11-18)
PROC: 3E03329 Introduction of Other Anti-infective into Peripheral Vein, Percutaneous Approach (ICD-10-PCS; 2022-11-18)
DX: R41.82 Altered mental status, unspecified (principal); R53.1 Weakness; I50.9 Heart failure, unspecified; I13.0 Hypertensive heart and chronic kidney disease with heart failure and stage 1 through stage 4 chronic kidney disease, or unspecified chronic kidney disease; A41.51 Sepsis due to Escherichia coli [E. coli]; G93.41 Metabolic encephalopathy; R00.0 Tachycardia, unspecified; J96.01 Acute respiratory failure with hypoxia; I50.33 Acute on chronic diastolic (congestive) heart failure; R65.21 Severe sepsis with septic shock; K57.32 Diverticulitis of large intestine without perforation or abscess without bleeding; I48.20 Chronic atrial fibrillation, unspecified; Z79.82 Long term (current) use of aspirin; Z68.41 Body mass index [BMI] 40.0-44.9, adult; E87.1 Hypo-osmolality and hyponatremia; E87.4 Mixed disorder of acid-base balance; E87.3 Alkalosis; Z20.822 Contact with and (suspected) exposure to COVID-19; I50.813 Acute on chronic right heart failure; E78.5 Hyperlipidemia, unspecified; G47.33 Obstructive sleep apnea (adult) (pediatric); K21.9 Gastro-esophageal reflux disease without esophagitis; M81.0 Age-related osteoporosis without current pathological fracture; F41.9 Anxiety disorder, unspecified; F32.A Depression, unspecified; E87.6 Hypokalemia; I25.10 Atherosclerotic heart disease of native coronary artery without angina pectoris; M19.90 Unspecified osteoarthritis, unspecified site; H54.7 Unspecified visual loss; E78.00 Pure hypercholesterolemia, unspecified; E11.22 Type 2 diabetes mellitus with diabetic chronic kidney disease; N18.9 Chronic kidney disease, unspecified; E55.9 Vitamin D deficiency, unspecified; Z96.659 Presence of unspecified artificial knee joint; E66.9 Obesity, unspecified; Z86.16 Personal history of COVID-19; Z79.899 Other long term (current) drug therapy; I25.2 Old myocardial infarction; Z95.5 Presence of coronary angioplasty implant and graft
CPT/HCPCS: 0241U; 36415; 36600; 51702; 71045; 71260; 74177; 80048; 80053; 81001; 82803; 82947; 83605; 83735; 83880; 84484; 85007; 85025; 85027; 86140; 87040; 87070; 87077; 87154; 87186; 87205; 87486; 87581; 87633; 87798; 93005; 93306; 96361; 96374; 99285; 93010; 99223; 99232; 99239; A9270-GY; J0696; J1170; J1815; J1940; J2060; J2543; J3370; J3490; J7030; J7060; Q9967

== ENCOUNTER 2022-11-29 15:06 | Emergency (ER) | payer MEDICARE, BC ==
[2022-11-29] MEDS ORDERED: Sodium Chloride 0.9% 1,000 ML ONE (15:16)
[2022-11-29] MEDS ORDERED: Sodium Chloride 0.9% 10 ML Syringe FLUSH PRN (15:20)
[2022-11-29] MEDS ORDERED: Sodium Chloride 0.9% 1,000 ML IV ONE (15:25)
[2022-11-29] MEDS ORDERED: Sodium Chloride 0.9% 2,500 ML IV ONE (15:35)
[2022-11-29 15:37] LABS: BASOPHILS ABSOLUTE AUTO 0.01 K/mm3 (0.01-0.08); BASOPHILS PERCENT AUTO 0.1 % (0.1-1.2); EOSINOPHILS ABSOLUTE AUTO 0.03 K/mm3 (0.04-0.36); EOSINOPHILS PERCENT AUTO 0.2 (0.7-5.8); HEMATOCRIT 30.1 % (34.1-44.9); HEMOGLOBIN 10.2 gm/dl (11.2-15.7); IMMATURE GRAN ABSOLUTE AUTO 0.07 K/mm3 (0.00-0.10); IMMATURE GRAN PERCENT AUTO 0.5 % (<=1.0); LYMPHOCYTES ABSOLUTE AUTO 0.62 K/mm3 (1.18-3.74); LYMPHOCYTES PERCENT AUTO 4.6 % (19.3-51.7); MEAN CORPUSCULAR HEMOGLOBIN 25.8 pg (25.6-32.2); MEAN CORPUSCULAR HGB CONC 33.9 g/dl (32.2-35.5); MEAN CORPUSCULAR VOLUME 76.2 fl (79.4-94.8); MEAN PLATELET VOLUME 12.1 fl (9.4-12.3); MONOCYTES ABSOLUTE AUTO 0.65 K/mm3 (0.24-0.36); MONOCYTES PERCENT AUTO 4.8 % (4.7-12.5); NEUTROPHILS ABSOLUTE AUTO 12.05 K/mm3 (1.56-6.13); NEUTROPHILS PERCENT AUTO 89.8 % (34.0-71.1); PLATELET COUNT,PLT 160 K/mm3 (182-369); RED BLOOD CELL COUNT 3.95 M/mm3 (3.98-5.22); WHITE BLOOD CELL COUNT,WBC 13.43 K/mm3 (3.98-10.04)
[2022-11-29 15:54] LABS: INR 1.45; PROTHROMBIN TIME 15.1 SECONDS (9.7-12.0)
[2022-11-29 16:01] LABS: A/G RATIO 0.3 (1-2); ALBUMIN 1.3 g/dl (3.4-5.0); ANION GAP 17.7 (5-15); BILIRUBIN TOTAL 2.6 mg/dL (0.2-1.0); BUN/CREATININE RATIO 12.8 (14-18); EST CRCL DRUG DOSING (CG) 11.27 mL/min; MAGNESIUM 1.7 mg/dL (1.8-2.4); POTASSIUM,K 4.7 mEq/L (3.5-5.1); PROTEIN TOTAL,TP 5.6 g/dl (6.4-8.2)
[2022-11-29 16:04] LABS: LACTIC ACID 0.6 mmol/L (0.4-2.0)
[2022-11-29 16:08] LABS: SLIDE REVIEW ABNORMAL SMEAR
[2022-11-29] MEDS ORDERED: Piperacillin/Tazobactam 4.5 GM in Sodium Chloride 0.9% 100 ML IV ONE (16:19)
[2022-11-29] MEDS ORDERED: Norepinephrine 4 MG in Dextrose 5% in Water 246 ML IV SCH ×2 (16:30)
[2022-11-29 16:47] LABS: CORONAVIRUS COVID-19 NAA NEGATIVE (NEGATIVE); INFLUENZA A NAA NEGATIVE (NEGATIVE); RESPIRATORY SYNCYTIAL VIR NAA NEGATIVE (NEGATIVE)
[2022-11-29] MEDS ORDERED: GENTAMICIN IV SCH (18:00)
[2022-11-29] MEDS ORDERED: SODIUM CHLORIDE 0.9% IV SCH (18:00)
[2022-11-29 19:17] VITALS: BP 71/46; PULSE 69
== END 2022-11-29 18:30 ==
LOC: JD.ED 15:06
DX: A41.9 Sepsis, unspecified organism (principal); R65.21 Severe sepsis with septic shock; N17.9 Acute kidney failure, unspecified; I48.91 Unspecified atrial fibrillation; I25.10 Atherosclerotic heart disease of native coronary artery without angina pectoris; I13.0 Hypertensive heart and chronic kidney disease with heart failure and stage 1 through stage 4 chronic kidney disease, or unspecified chronic kidney disease; E11.22 Type 2 diabetes mellitus with diabetic chronic kidney disease; N18.9 Chronic kidney disease, unspecified; I50.9 Heart failure, unspecified; I25.2 Old myocardial infarction; K21.9 Gastro-esophageal reflux disease without esophagitis; E66.9 Obesity, unspecified; Z68.34 Body mass index [BMI] 34.0-34.9, adult; Z86.16 Personal history of COVID-19; Z79.01 Long term (current) use of anticoagulants; Z79.899 Other long term (current) drug therapy; Z88.8 Allergy status to other drugs, medicaments and biological substances; Z20.822 Contact with and (suspected) exposure to COVID-19
CPT/HCPCS: 0241U; 36415; 71045; 71250; 74176; 80053; 82550; 83605; 83735; 84484; 85025; 85610; 85730; 87040; 93005; 96365; 96366; 96368; 99285; J2543; J3370; J3490; J7030; J7050; J7060; 36556; 93010; 99291; 99292

== ENCOUNTER 2023-05-08 06:40 | Inpatient (IN) | payer MEDICARE, BC ==
[2023-05-08 07:25] LABS: HEMOGLOBIN 11.6 gm/dl (12.0-16.0); MEAN CORPUSCULAR HEMOGLOBIN 24.9 pg (28.0-32.0); MEAN CORPUSCULAR HGB CONC 32.2 g/dl (32.0-36.0); MEAN CORPUSCULAR VOLUME 77.3 fl (83.0-99.0); MEAN PLATELET VOLUME 9.8 fl (9.4-12.3); PLATELET COUNT,PLT 312 K/mm3 (150-400); RED BLOOD CELL COUNT 4.66 M/mm3 (4.10-5.30); WHITE BLOOD CELL COUNT,WBC 10.22 K/mm3 (3.9-11.3)
[2023-05-08 07:37] LABS: INR 1.06; PROTHROMBIN TIME 11.3 SECONDS (9.7-12.0)
[2023-05-08 07:41] LABS: A/G RATIO 0.6 (1-2); ALBUMIN 2.9 g/dl (3.4-5.0); ANION GAP 14.5 (5-15); BILIRUBIN TOTAL 0.6 mg/dL (0.2-1.0); CALCIUM 9.2 mg/dL (8.5-10.1); EST CRCL DRUG DOSING (CG) 41.45 mL/min; POTASSIUM,K 3.5 mEq/L (3.5-5.1); PROTEIN TOTAL,TP 7.7 g/dl (6.4-8.2)
[2023-05-08 08:45] LABS: BAND PERCENT MAN 0 % (0-10); BASOPHILS PERCENT MAN 0 (0.1-1.2); EOSINOPHILS PERCENT MAN 0 % (0.7-5.8); LYMPHOCYTES % ATYPICAL MANUAL 0 %; LYMPHOCYTES PERCENT MAN 22 % (20-40); MONOCYTES PERCENT MAN 0 % (2-10)
[2023-05-08 08:46] LABS: PLATELET COUNT ESTIMATE ADEQUATE
[2023-05-08 09:57] LABS: HEMATOCRIT 33.8 % (37.0-47.0); HEMOGLOBIN 10.9 gm/dl (12.0-16.0)
[2023-05-08 12:24] LABS: HEMATOCRIT 32.7 % (37.0-47.0); HEMOGLOBIN 10.6 gm/dl (12.0-16.0)
[2023-05-08] MEDS ORDERED: Ondansetron 4 MG/2 ML SDV IV PRN (15:56)
[2023-05-08] MEDS ORDERED: Acetaminophen 325 MG Tab PO PRN ×2 (15:56→16:01)
[2023-05-08] MEDS ORDERED: oxyCODONE 5 MG Tab PO PRN (16:03)
[2023-05-08 16:58] LABS: HEMATOCRIT 32.7 % (37.0-47.0); HEMOGLOBIN 10.6 gm/dl (12.0-16.0)
[2023-05-08] MEDS: Diltiazem 120 MG Cap.CD PO SCH (17:22)
[2023-05-08] MEDS: Insulin Lispro 100 Unit/ML 3 ML KwikPen SUBCUT SCH ×2 (17:24→23:33)
[2023-05-08] MEDS: Gabapentin 300 MG Cap PO SCH (21:30)
[2023-05-08] MEDS: atorvaSTATin 40 MG Tab PO SCH (21:30)
[2023-05-08] MEDS: Magnesium Oxide 400 MG Tab PO SCH (21:30)
[2023-05-08 22:09] LABS: HEMATOCRIT 31.2 % (37.0-47.0); HEMOGLOBIN 10.1 gm/dl (12.0-16.0)
[2023-05-09 05:33] LABS: BASOPHILS PERCENT AUTO 0.5 % (0.0-1.0); EOSINOPHILS ABSOLUTE AUTO 0.2 K/mm3 (0.0-0.4); EOSINOPHILS PERCENT AUTO 2.3 % (0.0-6.0); HEMATOCRIT 29.9 % (37.0-47.0); HEMOGLOBIN 9.6 gm/dl (12.0-16.0); IMMATURE GRAN ABSOLUTE AUTO 0.05 K/mm3 (0.00-0.05); IMMATURE GRAN PERCENT AUTO 0.6 % (0.0-0.4); LYMPHOCYTES ABSOLUTE AUTO 1.7 K/mm3 (1.0-4.8); LYMPHOCYTES PERCENT AUTO 19.5 % (24.0-44.0); MEAN CORPUSCULAR HGB CONC 32.1 g/dl (32.0-36.0); MEAN CORPUSCULAR VOLUME 77.9 fl (83.0-99.0); MEAN PLATELET VOLUME 9.7 fl (9.4-12.3); MONOCYTES ABSOLUTE AUTO 0.8 K/mm3 (0.0-0.8); MONOCYTES PERCENT AUTO 9.4 % (0.0-8.0); NEUTROPHILS ABSOLUTE AUTO 5.8 K/mm3 (1.8-7.7); NEUTROPHILS PERCENT AUTO 67.7 % (41.0-71.0); PLATELET COUNT,PLT 296 K/mm3 (150-400); RED BLOOD CELL COUNT 3.84 M/mm3 (4.10-5.30); WHITE BLOOD CELL COUNT,WBC 8.61 K/mm3 (3.9-11.3)
[2023-05-09] MEDS ORDERED: Non-Formulary Medication 1 Each (Pantoprazole Sodium 40 MG Tablet.Dr) PO SCH (06:00)
[2023-05-09] MEDS ORDERED: Pantoprazole 40 MG Tab.CR PO SCH (06:00)
[2023-05-09 06:13] LABS: A/G RATIO 0.6 (1-2); ALBUMIN 2.2 g/dl (3.4-5.0); ANION GAP 12.6 (5-15); BILIRUBIN TOTAL 0.5 mg/dL (0.2-1.0); CALCIUM 8.4 mg/dL (8.5-10.1); CREATININE 0.9 mg/dL (0.55-1.02); EST CRCL DRUG DOSING (CG) 42.01 mL/min; MAGNESIUM 1.9 mg/dL (1.8-2.4); POTASSIUM,K 3.6 mEq/L (3.5-5.1); PROTEIN TOTAL,TP 6.1 g/dl (6.4-8.2)
[2023-05-09] MEDS: Gabapentin 300 MG Cap PO SCH ×3 (06:27→21:48)
[2023-05-09] MEDS: Pantoprazole 40 MG Tab.CR PO SCH (06:27)
[2023-05-09] MEDS: Insulin Lispro 100 Unit/ML 3 ML KwikPen SUBCUT SCH ×4 (07:43→21:46)
[2023-05-09] MEDS: Magnesium Oxide 400 MG Tab PO SCH ×2 (08:33→21:47)
[2023-05-09] MEDS: Furosemide 40 MG Tab PO SCH (08:34)
[2023-05-09] MEDS: Amiodarone 200 MG Tab PO SCH (08:34)
[2023-05-09] MEDS: Losartan 25 MG Tab PO SCH (08:34)
[2023-05-09] MEDS: Diltiazem 120 MG Cap.CD PO SCH (08:36)
[2023-05-09] MEDS: atorvaSTATin 40 MG Tab PO SCH (21:47)
[2023-05-10 05:30] LABS: BASOPHILS ABSOLUTE AUTO 0.1 K/mm3 (0.0-0.2); BASOPHILS PERCENT AUTO 0.7 % (0.0-1.0); EOSINOPHILS ABSOLUTE AUTO 0.2 K/mm3 (0.0-0.4); EOSINOPHILS PERCENT AUTO 2.2 % (0.0-6.0); HEMATOCRIT 29.5 % (37.0-47.0); HEMOGLOBIN 9.4 gm/dl (12.0-16.0); IMMATURE GRAN ABSOLUTE AUTO 0.06 K/mm3 (0.00-0.05); IMMATURE GRAN PERCENT AUTO 0.7 % (0.0-0.4); LYMPHOCYTES ABSOLUTE AUTO 1.8 K/mm3 (1.0-4.8); LYMPHOCYTES PERCENT AUTO 20.7 % (24.0-44.0); MEAN CORPUSCULAR HEMOGLOBIN 24.9 pg (28.0-32.0); MEAN CORPUSCULAR HGB CONC 31.9 g/dl (32.0-36.0); MEAN PLATELET VOLUME 9.3 fl (9.4-12.3); MONOCYTES ABSOLUTE AUTO 0.8 K/mm3 (0.0-0.8); MONOCYTES PERCENT AUTO 9.4 % (0.0-8.0); NEUTROPHILS ABSOLUTE AUTO 5.7 K/mm3 (1.8-7.7); NEUTROPHILS PERCENT AUTO 66.3 % (41.0-71.0); PLATELET COUNT,PLT 332 K/mm3 (150-400); RED BLOOD CELL COUNT 3.78 M/mm3 (4.10-5.30); WHITE BLOOD CELL COUNT,WBC 8.54 K/mm3 (3.9-11.3)
[2023-05-10 05:54] LABS: A/G RATIO 0.6 (1-2); ALBUMIN 2.3 g/dl (3.4-5.0); ANION GAP 11.5 (5-15); BILIRUBIN TOTAL 0.4 mg/dL (0.2-1.0); BUN/CREATININE RATIO 14.4 (14-18); CALCIUM 8.3 mg/dL (8.5-10.1); CREATININE 0.9 mg/dL (0.55-1.02); EST CRCL DRUG DOSING (CG) 42.01 mL/min; MAGNESIUM 1.9 mg/dL (1.8-2.4); POTASSIUM,K 3.5 mEq/L (3.5-5.1); PROTEIN TOTAL,TP 6.2 g/dl (6.4-8.2)
[2023-05-10] MEDS: Gabapentin 300 MG Cap PO SCH (06:46)
[2023-05-10] MEDS: Pantoprazole 40 MG Tab.CR PO SCH (06:47)
[2023-05-10] MEDS: Insulin Lispro 100 Unit/ML 3 ML KwikPen SUBCUT SCH ×2 (06:59→11:14)
[2023-05-10] MEDS: Furosemide 40 MG Tab PO SCH (08:27)
[2023-05-10] MEDS: Magnesium Oxide 400 MG Tab PO SCH (08:27)
[2023-05-10] MEDS: Amiodarone 200 MG Tab PO SCH (08:28)
[2023-05-10] MEDS: Losartan 25 MG Tab PO SCH (08:28)
[2023-05-10] MEDS: Diltiazem 120 MG Cap.CD PO SCH (08:29)
[2023-05-10 12:00] VITALS: BP 115/68; PULSE 70
== END 2023-05-10 12:23 | disposition home or self-care (01) | DRG 378 ==
LOC: JD.ED 06:40 → JD.MS 15:55
PROVIDERS: ADMIT Pediatrics; ATTEND Internal Medicine
DX: K92.2 Gastrointestinal hemorrhage, unspecified (principal); D68.9 Coagulation defect, unspecified; I13.0 Hypertensive heart and chronic kidney disease with heart failure and stage 1 through stage 4 chronic kidney disease, or unspecified chronic kidney disease; J98.11 Atelectasis; I48.91 Unspecified atrial fibrillation; E11.9 Type 2 diabetes mellitus without complications; G47.33 Obstructive sleep apnea (adult) (pediatric); I25.10 Atherosclerotic heart disease of native coronary artery without angina pectoris; I50.9 Heart failure, unspecified; E78.5 Hyperlipidemia, unspecified; K21.9 Gastro-esophageal reflux disease without esophagitis; E11.22 Type 2 diabetes mellitus with diabetic chronic kidney disease; F41.9 Anxiety disorder, unspecified; E66.9 Obesity, unspecified; E78.00 Pure hypercholesterolemia, unspecified; M81.0 Age-related osteoporosis without current pathological fracture; Z96.659 Presence of unspecified artificial knee joint; N18.31 Chronic kidney disease, stage 3a; M15.9 Polyosteoarthritis, unspecified; T50.905A Adverse effect of unspecified drugs, medicaments and biological substances, initial encounter; F32.89 Other specified depressive episodes; Z68.34 Body mass index [BMI] 34.0-34.9, adult; Z79.01 Long term (current) use of anticoagulants; I25.2 Old myocardial infarction; Z98.890 Other specified postprocedural states; Z86.010 Personal history of colon polyps; Z95.5 Presence of coronary angioplasty implant and graft; Z87.898 Personal history of other specified conditions; Z86.79 Personal history of other diseases of the circulatory system; Z88.8 Allergy status to other drugs, medicaments and biological substances; Z98.49 Cataract extraction status, unspecified eye; Z79.899 Other long term (current) drug therapy; Z90.49 Acquired absence of other specified parts of digestive tract
CPT/HCPCS: 36415; 71045; 71045-26; 80053; 82947; 83735; 85007; 85014; 85018; 85025; 85027; 85610; 85730; 86850; 86900; 86901; 94660; 94760; 99223; 99232; 99239; 99284; A9270-GY